=== PATIENT | female | born 1975 | race Hispanic/Latino ===

== ENCOUNTER 2020-01-08 09:47 | Outpatient (CLI) | payer OTHER, SELFPAY ==
--- NOTE | ~2020-01-08 | US_ITS ---
EXAMINATION: US pelvic complete w TV DATE: 01/08/2020 10:39 INDICATION: Pelvic pain. Endometriosis. Abnormal bleeding. TECHNIQUE: Multiple transabdominal and transvaginal sonographic images of the pelvis were obtained. COMPARISON: Pelvis ultrasound 06/01/2016, CT abdomen and pelvis 06/13/2016 FINDINGS: TRANSABDOMINAL ULTRASOUND: The uterus measures 7.2 x 4.1 x 4.6 cm. There is no free fluid in the pelvis. TRANSVAGINAL ULTRASOUND: The endometrial complex measures 6 mm in thickness. There is a 1.1 cm submucosal isoechoic fibroid. T he right ovary measures 2.8 x 1.5 x 2.5 cm. The left ovary measures 2.1 x 1.3 x 1.2 cm. There is norm al vascular flow in the ovaries. IMPRESSION: 1. Submucosal uterine fibroid. Reviewed, dictated and finalized at location A.
== END 2020-01-08 09:49 | disposition home or self-care (01) ==
PROVIDERS: PCP Family Medicine; Visit Provider Obstetrics & Gynecology
DX: D25.0 Submucous leiomyoma of uterus (principal); N80.9 Endometriosis, unspecified; R10.2 Pelvic and perineal pain
CPT/HCPCS: 76830; 76856

== ENCOUNTER 2020-08-23 17:56 | Outpatient (CLI) | payer OTHER, SELFPAY ==
--- NOTE | ~2020-08-23 | XR_ITS ---
EXAMINATION: XR chest 2V DATE: 08/23/2020 18:29 INDICATION: Shortness of breath. COVID-19 pneumonia in February. TECHNIQUE: Frontal and lateral views of the chest were obtained. COMPARISON: CT abdomen and pelvis 06/13/2016 FINDINGS: The chest demonstrates clear lungs without pneumonia, pleural effusion, or pneumothorax. Th e heart size is normal. IMPRESSION: 1. No acute cardiopulmonary disease. Reviewed, dictated and finalized at location A.
== END 2020-08-23 17:57 | disposition home or self-care (01) ==
PROVIDERS: PCP Family Medicine; Visit Provider Nurse Practitioner Family
DX: R50.9 Fever, unspecified (principal); U07.1 COVID-19
CPT/HCPCS: 71046

== ENCOUNTER → 2021-05-19 00:19 | Outpatient (CLI) | payer OTHER, SELFPAY ==
[2021-05-19 13:07] LABS: SARS-CoV-2 RNA PCR Negative
== END ==
PROVIDERS: PCP Family Medicine; Visit Provider Psychiatry & Neurology Neurology
DX: Z01.812 Encounter for preprocedural laboratory examination (principal); Z20.822 Contact with and (suspected) exposure to COVID-19
CPT/HCPCS: C9803; U0003; U0005

== ENCOUNTER 2021-05-19 11:59 | Outpatient (CLI) | payer OTHER, SELFPAY ==
[2021-05-19 11:42] LABS: Basophils Percent Auto 0.6 % (0.2-1.2); Eosinophils Absolute Auto 0.1 K/mm3 (0-0.3); Eosinophils Percent Auto 1.8 % (0-4.4); Hematocrit 38.3 % (37.0-47.0); Hemoglobin 12.7 g/dL (12.0-15.0); Immature Granulocyte Absolute 0.01 K/mm3 (0.00-0.031); Immature Granulocyte Percent A 0.1 % (0-0.5); Lymphocytes Absolute Auto 1.86 K/mm3 (0.9-3.2); Lymphocytes Percent Auto 25.7 % (18.3-44.2); Mean Corpuscular HGB Conc 33.2 g/dl (32-36); Mean Corpuscular Hemoglobin 30.9 pg (26-34); Mean Corpuscular Volume 93.2 fl (80-100); Mean Platelet Volume 9.8 fl (7.4-10.4); Monocytes Absolute Auto 0.7 K/mm3 (0.1-0.6); Monocytes Percent Auto 9.1 % (2.6-8.5); Neutrophils Absolute Auto 4.5 K/mm3 (1.3-6.7); Neutrophils Percent Auto 62.7 % (45.5-73.1); Platelet Count Result 248 k/mm3 (150-375); Red Blood Count 4.11 M/mm3 (4.2-5.4); Red Cell Distribution Width 13.7 % (11.5-14.5); White Blood Count 7.2 K/mm3 (4.5-10.0)
[2021-05-19 13:40] LABS: Alanine Aminotransferase 12 U/L (4-35); Albumin Level 4.5 g/dL (3.5-5.1); Alkaline Phosphatase 81 U/L (38-126); Anion Gap 6 mmol/L (8-16); Aspartate Amino Transferase 20 U/L (14-36); Bilirubin,Total 0.3 mg/dL (0.2-1.3); Blood Urea Nitrogen 9 mg/dL (7-17); Calcium 9.6 mg/dL (8.4-10.2); Carbon Dioxide 26 mmol/L (22-30); Chloride 109 mmol/L (98-107); Estimated Glomerular Filt Rate > 60; Glucose 99 mg/dL (65-110); Potassium 3.7 mmol/L (3.4-5.0); Sodium 141 mmol/L (137-145)
[2021-05-31 15:53] LABS: Albumin, Serum 4.1 g/dL (3.5-5.2); Immunoglobulin G, Serum 1560 mg/dL (600-1640); Myelin Basic Protein, CSF <2.0 mcg/L (2.0-4.0)
== END 2021-05-19 12:00 | disposition home or self-care (01) ==
LOC: ANHLAB 11:59
PROVIDERS: PCP Family Medicine; Visit Provider Psychiatry & Neurology Neurology
DX: G35 Multiple sclerosis (principal); D89.89 Other specified disorders involving the immune mechanism, not elsewhere classified; Z86.69 Personal history of other diseases of the nervous system and sense organs
CPT/HCPCS: 36415; 80053; 82040; 82042; 82784; 83873; 83916; 85025; 86038; C9803; U0003; U0005

== ENCOUNTER 2021-05-23 07:25 | Outpatient (CLI) | payer OTHER, SELFPAY ==
--- NOTE | ~2021-05-23 | XR_ITS ---
EXAMINATION: XR lumbar puncture diagnostic DATE: 05/23/2021 10:10 INDICATION: Multiple sclerosis TECHNIQUE: The procedure including the risks and benefits was discussed with the patient. Risks discu ssed included spinal headache, cerebrospinal fluid leak, bleeding, and infection. The patient underst ood the risks and agreed to proceed. A timeout was performed to verify the patient's name, date of , and procedure to be performed. The skin overlying the L3-L4 level was prepped and draped in usual sterile fashion. Subcutaneous 1% lidocaine was used for local anesthesia. A 22 gauge spinal n eedle was advanced under fluoroscopic guidance. The needle was removed and the entry site was cleaned and dressed. There were no immediate complications. The patient was taken to the nursing area for o bservation. FINDINGS: Real-time fluoroscopy demonstrates the needle at the L3-L4 level. Opening pressure was 17 c m water. (Normal range is variably defined as 6-20 cm water and up to 25 cm water in obese patients. Pressure >25 cm water is one of the modified Dandy criteria for idiopathic intracranial hypertension) . 15 mL of clear, colorless fluid was collected in 4 tubes. IMPRESSION: 1. Successful fluoro-guided lumbar puncture. Reviewed, dictated and finalized at location A. ER PILOT
[2021-05-23 08:24] LABS: Basophils Absolute Auto 0.1 K/mm3 (0.0-0.1); Basophils Percent Auto 0.5 % (0.2-1.2); Eosinophils Absolute Auto 0.2 K/mm3 (0-0.3); Eosinophils Percent Auto 1.7 % (0-4.4); Hematocrit 39.4 % (37.0-47.0); Hemoglobin 12.8 g/dL (12.0-15.0); Immature Granulocyte Absolute 0.02 K/mm3 (0.00-0.031); Immature Granulocyte Percent A 0.2 % (0-0.5); Lymphocytes Absolute Auto 3.28 K/mm3 (0.9-3.2); Lymphocytes Percent Auto 35.7 % (18.3-44.2); Mean Corpuscular HGB Conc 32.5 g/dl (32-36); Mean Corpuscular Hemoglobin 30.5 pg (26-34); Mean Corpuscular Volume 93.8 fl (80-100); Mean Platelet Volume 9.9 fl (7.4-10.4); Monocytes Absolute Auto 0.9 K/mm3 (0.1-0.6); Monocytes Percent Auto 9.8 % (2.6-8.5); Neutrophils Absolute Auto 4.8 K/mm3 (1.3-6.7); Neutrophils Percent Auto 52.1 % (45.5-73.1); Platelet Count Result 243 k/mm3 (150-375); Red Cell Distribution Width 13.6 % (11.5-14.5); White Blood Count 9.2 K/mm3 (4.5-10.0)
[2021-05-23 08:35] LABS: Prothrombin Time 12.9 Seconds (11.1-14.7)
[2021-05-23 10:00] VITALS: BP 118/66; PULSE 62; RESP 16; O2SAT 98
[2021-05-23 10:16] LABS: Glucose CSF 53 mg/dL (40-70); Total Protein CSF 60 mg/dL (12-60)
[2021-05-23] MEDS: HYDROcodone/acetaminophen (*CRX) 10-325 MG TABLET 1 TAB PO (10:45)
[2021-05-23 11:00] VITALS: BP 131/77; PULSE 63; RESP 16
[2021-05-23 11:16] LABS: Appearance CSF Clear (Clear); CSF source CSF; Color CSF Colorless (Colorless)
--- NOTE | 2021-05-23 11:39 | SUR.PHASEII ---
pt given water, 7up and gram crackers and is tolerating that well
[2021-05-23 11:55] LABS: Red Blood Cell CSF 2.75 (0-2)
[2021-05-23 11:56] LABS: Nucleated Cell CSF 0 /uL (0-5)
[2021-05-23 12:00] VITALS: BP 112/53; PULSE 63; RESP 16
[2021-05-24 21:57] LABS: Cryptococcus Antigen Not Detected (Not Detected); Cryptococcus Specimen Source CSF
[2021-05-25 18:03] LABS: VDRL Quantitative CSF Nonreactive (Nonreactive)
== END 2021-05-23 12:20 | disposition home or self-care (01) ==
PROVIDERS: Radiology Diagnostic Radiology; PCP Family Medicine; Visit Provider Psychiatry & Neurology Neurology
PROC: 009U3ZZ Drainage of Spinal Canal, Percutaneous Approach (ICD-10-PCS; CPT 62328; principal; 2021-05-23 09:30)
DX: G35 Multiple sclerosis (principal)
CPT/HCPCS: 36415; 62328; 82945; 84157; 85025; 85610; 86403; 86592; 87070; 87102; 87206; 89051; A9270

== ENCOUNTER 2021-06-21 10:00 | Outpatient (CLI) | payer OTHER, SELFPAY ==
[2021-06-21 10:38] LABS: Basophils Percent Auto 0.4 % (0.2-1.2); Eosinophils Absolute Auto 0.3 K/mm3 (0-0.3); Eosinophils Percent Auto 3.5 % (0-4.4); Hematocrit 39.1 % (37.0-47.0); Hemoglobin 12.7 g/dL (12.0-15.0); Immature Granulocyte Absolute 0.02 K/mm3 (0.00-0.031); Immature Granulocyte Percent A 0.2 % (0-0.5); Lymphocytes Absolute Auto 1.83 K/mm3 (0.9-3.2); Lymphocytes Percent Auto 22.7 % (18.3-44.2); Mean Corpuscular HGB Conc 32.5 g/dl (32-36); Mean Corpuscular Hemoglobin 30.9 pg (26-34); Mean Corpuscular Volume 95.1 fl (80-100); Mean Platelet Volume 9.7 fl (7.4-10.4); Monocytes Absolute Auto 0.8 K/mm3 (0.1-0.6); Monocytes Percent Auto 9.9 % (2.6-8.5); Neutrophils Absolute Auto 5.1 K/mm3 (1.3-6.7); Neutrophils Percent Auto 63.3 % (45.5-73.1); Platelet Count Result 236 k/mm3 (150-375); Red Blood Count 4.11 M/mm3 (4.2-5.4); Red Cell Distribution Width 13.6 % (11.5-14.5); White Blood Count 8.1 K/mm3 (4.5-10.0)
[2021-06-21 10:55] LABS: Alanine Aminotransferase 10 U/L (4-35); Albumin Level 4.6 g/dL (3.5-5.1); Alkaline Phosphatase 91 U/L (38-126); Anion Gap 9 mmol/L (8-16); Aspartate Amino Transferase 22 U/L (14-36); Bilirubin,Total 0.6 mg/dL (0.2-1.3); Blood Urea Nitrogen 9 mg/dL (7-17); Calcium 9.3 mg/dL (8.4-10.2); Carbon Dioxide 25 mmol/L (22-30); Chloride 104 mmol/L (98-107); Cholesterol 153 mg/dL (0-200); Estimated Glomerular Filt Rate > 60; Glucose 91 mg/dL (65-110); HDL Direct 34 mg/dL; Potassium 3.4 mmol/L (3.4-5.0); Sodium 138 mmol/L (137-145); Triglycerides 125 mg/dL (<150); Uric Acid 4.2 mg/dL (2.5-7.5)
[2021-06-21 11:05] LABS: LDL Cholesterol Direct 85 mg/dL
[2021-06-21 11:12] LABS: Free T4 Free Thyroxine 0.92 ng/mL (0.78-2.19)
[2021-06-21 11:17] LABS: Creatinine Urine 77.5 mg/dL
[2021-06-21 11:22] LABS: MALB Creatinine Ratio 9.2 mg/g (0-30); Microalbumin Urine Random 7.1 mg/L (0-16.7)
[2021-06-21 11:24] LABS: Total Triiodothyronine (T3) 1.16 NG/ML (0.97-1.69)
[2021-06-21 11:57] LABS: Vitamin D 25 Hydroxy 26.6 ng/mL
== END 2021-06-21 10:01 | disposition home or self-care (01) ==
LOC: ANHLAB 10:02
PROVIDERS: PCP Family Medicine; Visit Provider Nurse Practitioner Adult Health
DX: N18.2 Chronic kidney disease, stage 2 (mild) (principal)
CPT/HCPCS: 36415; 80053; 80061; 82043; 82306; 84439; 84443; 84480; 84550; 85025

== ENCOUNTER 2021-09-14 09:12 | Outpatient (CLI) | payer OTHER, SELFPAY ==
--- NOTE | ~2021-09-14 | MR_ITS ---
EXAMINATION: MR cervical spine wo/w con DATE: 09/14/2021 11:18 INDICATION: Multiple sclerosis. TECHNIQUE: Magnetic resonance imaging (MRI) of the cervical spine was performed without and with 20 m L MultiHance intravenous contrast. COMPARISON: None FINDINGS: There is 7 degrees dextrocurvature of cervicothoracic spine. There is kyphosis of cervical spine. Vertebral body heights are normal. There is moderately decreased disc height at C3-C4 and C4-C 5 and severely decreased disc height at C5-C6. The spinal cord signal intensity is normal. The follow ing disc levels are specifically discussed: C2-C3: The disc does not extend beyond the endplate margin. There is mild bilateral uncovertebral brigido nt osteoarthritis. There is severe right and mild left facet joint osteoarthritis. There is mild righ t neural foraminal stenosis. There is no central canal stenosis. C3-C4: The disc is bulging. There is severe bilateral uncovertebral joint osteoarthritis. There is mo derate right and severe left facet joint osteoarthritis. There is moderate bilateral neural foraminal stenosis. There is mild central canal stenosis with ventral indentation of the spinal cord. C4-C5: The disc is bulging. There is severe bilateral uncovertebral joint osteoarthritis. There is mo derate right and mild left facet joint osteoarthritis. There is moderate right and severe left neural foraminal stenosis. There is moderate central canal stenosis with ventral and dorsal indentation of the spinal cord. C5-C6: The disc is bulging. There is severe bilateral uncovertebral joint osteoarthritis. There is mi ld bilateral facet joint osteoarthritis. There is severe bilateral neural foraminal stenosis. There i s moderate central canal stenosis with ventral and dorsal indentation of spinal cord. C6-C7: There is a central protrusion. There is mild bilateral uncovertebral joint osteoarthritis. The re is mild right and moderate left facet joint osteoarthritis. There is mild bilateral neural foramin al stenosis. There is mild central canal stenosis. C7-T1: The disc does not extend beyond the endplate margin. There is no uncovertebral joint osteoarth ritis. There is moderate bilateral facet joint osteoarthritis. There is no neural foraminal stenosis. There is no central canal stenosis. IMPRESSION: 1. No spinal cord evidence of multiple sclerosis. 2. Severe cervical spondylosis. Reviewed, dictated and finalized at location A.
--- NOTE | ~2021-09-14 | MR_ITS ---
EXAMINATION: MR thoracic spine wo/w con DATE: 09/14/2021 11:19 INDICATION: Multiple sclerosis. TECHNIQUE: Magnetic resonance imaging (MRI) of the thoracic spine was performed without and with 20 m L MultiHance intravenous contrast. COMPARISON: Chest 2 views 08/23/2020 FINDINGS: There is 11 degrees levoscoliosis of upper thoracic spine and 7 degrees dextrocurvature of lower thoracic spine. There is mild chronic height loss of T7, T8, and T12 vertebral bodies. There is mildly decreased disc height at T4-T5 and T5-T6, moderately decreased disc height from T6-T7 through T8-T9, and mildly decreased disc height from T9-T10 through T11-T12. At T6-T7, there is a central ex trusion with mild central canal stenosis. At T7-T8, there is a left central extrusion with mild centr al canal stenosis. There is multilevel mild facet joint osteoarthritis, severe on the right at T4-T5 and T5-T6. On the right, there is moderate neural foraminal stenosis at T4-T5. On the right, there is mild neural foraminal stenosis at T3-T4, T5-T6, and T11-T12. On the left, there is mild neural florentin inal stenosis at T3-T4 and T4-T5. The spinal cord signal intensity is normal. The conus medullaris is at L1-L2. IMPRESSION: 1. No evidence of spinal cord multiple sclerosis. 2. Moderate thoracic spondylosis. 3. Scoliosis. Reviewed, dictated and finalized at location A.
--- NOTE | ~2021-09-14 | MR_ITS ---
EXAMINATION: MR brain/brain stem wo/w con DATE: 09/14/2021 11:16 INDICATION: Multiple sclerosis. TECHNIQUE: Magnetic resonance imaging (MRI) of the brain and brainstem was performed without and with 20 mL MultiHance intravenous contrast. COMPARISON: None. FINDINGS: There are more than 10 total lesions of increased T2-weighted signal intensity in the brain . Of these lesions, approximately one is periventricular, three are juxtacortical, and none are infra tentorial. None of the lesions enhance. There is no acute ischemic infarct or intracranial hemorrhage . The ventricles are normal in size. The orbits are normal. There is complete opacification of right maxillary sinus. The mastoid air cells are normal. IMPRESSION: 1. Mild nonspecific cerebral white matter disease. The differential diagnosis includes premature lead mechanical engineer vale small vessel ischemic disease (especially if the patient has cardiovascular risk factors), demyel inating disease such as multiple sclerosis, drug abuse, vasculitis, or reactive astrocytosis (gliosis ) secondary to nonspecific etiology. Reviewed, dictated and finalized at location A. IMPRESSION: 1. Mild nonspecific cerebral white matter disease. The differential diagnosis i ncludes premature chronic small vessel ischemic disease (especially if the javier ent has cardiovascular risk factors), demyelinating disease such as multiple sc lerosis, drug abuse, vasculitis, or reactive astrocytosis (gliosis) secondary t o nonspecific etiology.
[2021-09-14 09:58] LABS: Estimated Glomerular Filt Rate 54
== END 2021-09-14 09:13 | disposition home or self-care (01) ==
LOC: ANHIMG 09:17
PROVIDERS: PCP Family Medicine; Visit Provider Psychiatry & Neurology Neurology
DX: G35 Multiple sclerosis (principal); M41.9 Scoliosis, unspecified; M47.814 Spondylosis without myelopathy or radiculopathy, thoracic region; M48.04 Spinal stenosis, thoracic region; M47.813 Spondylosis without myelopathy or radiculopathy, cervicothoracic region; M48.03 Spinal stenosis, cervicothoracic region; R90.82 White matter disease, unspecified
CPT/HCPCS: 70553; 72156; 72157; A9577

== ENCOUNTER 2024-03-13 12:45 | Outpatient (CLI) | payer OTHER, SELFPAY ==
[2024-03-13 13:17] LABS: Basophils Percent Auto 0.6 % (0.2-1.2); Eosinophils Absolute Auto 0.2 K/mm3 (0-0.3); Eosinophils Percent Auto 2.9 % (0-4.4); Hematocrit 35.1 % (37.0-47.0); Hemoglobin 11.5 g/dL (12.0-15.0); Immature Granulocyte Absolute 0.01 K/mm3 (0.00-0.031); Immature Granulocyte Percent A 0.1 % (0-0.5); Lymphocytes Absolute Auto 2.35 K/mm3 (0.9-3.2); Mean Corpuscular HGB Conc 32.8 g/dl (32-36); Mean Corpuscular Volume 91.6 fl (80-100); Mean Platelet Volume 9.1 fl (7.4-10.4); Monocytes Percent Auto 14.4 % (2.6-8.5); Neutrophils Absolute Auto 3.5 K/mm3 (1.3-6.7); Platelet Count Result 285 k/mm3 (150-375); Red Blood Count 3.83 M/mm3 (4.2-5.4); Red Cell Distribution Width 12.5 % (11.5-14.5); White Blood Count 7.1 K/mm3 (4.5-10.0)
[2024-03-13 13:37] LABS: Alanine Aminotransferase 9 U/L (6-35); Albumin Level 4.7 g/dL (3.5-5.1); Alkaline Phosphatase 45 U/L (38-126); Anion Gap 10 mmol/L (4-12); Aspartate Amino Transferase 25 U/L (14-36); Bilirubin,Total 0.6 mg/dL (0.2-1.3); Blood Urea Nitrogen 20 mg/dL (7-17); Calcium 9.3 mg/dL (8.4-10.2); Carbon Dioxide 26 mmol/L (22-30); Chloride 102 mmol/L (98-107); Estimated Glomerular Filt Rate 48; Glucose 76 mg/dL (65-110); Potassium 2.7 mmol/L (3.4-5.0); Sodium 138 mmol/L (137-145)
[2024-03-13 13:58] LABS: Total Triiodothyronine (T3) 0.93 NG/ML (0.97-1.69)
[2024-03-13 14:06] LABS: Free T4 Free Thyroxine 1.11 ng/mL (0.78-2.19)
[2024-03-13 14:34] LABS: Folic Acid 6.4 ng/mL (2.76->20)
== END 2024-03-13 12:46 | disposition home or self-care (01) ==
LOC: ANHLAB 12:56
PROVIDERS: PCP Family Medicine; Visit Provider Psychiatry & Neurology Neurology
DX: D64.9 Anemia, unspecified (principal); R53.83 Other fatigue; R41.3 Other amnesia; R41.89 Other symptoms and signs involving cognitive functions and awareness; R90.89 Other abnormal findings on diagnostic imaging of central nervous system; G35 Multiple sclerosis; R20.0 Anesthesia of skin
CPT/HCPCS: 36415; 80053; 82607; 82746; 84425; 84439; 84443; 84480; 85025

== ENCOUNTER 2024-03-15 12:04 | Emergency (ER) | payer OTHER, SELFPAY ==
[2024-03-15 12:13] VITALS: BP 134/74; PULSE 96; RESP 16; TEMP 36.2; O2SAT 100
--- NOTE | 2024-03-15 12:53 | ED.RECABL ---
HPI - Recheck/Abnormal Lab/Rx General Chief Complaint: Recheck/Abnormal Lab/Rx Stated Complaint: low sodium Time Seen by Provider: 03/15/24 12:53 Focused HPI: Patient is a 48 y/o female, with PMH MS, who presents to the ED with c/o abnormal labs. Patient reports she had routine labs drawn over the weekend for her doctors. Was told today her potassium was low at 2.7. Sent here for further evaluation. Patient denies previous issues with her potassium. States she has otherwise felt in her normal state of health. Has hx of IBS and denies any increased N/V/D. Denies fevers. GENERAL: Well-appearing, well-nourished, and in no acute distress. HEAD: Normocephalic, atraumatic. CHEST: Clear to auscultation. ?No respiratory distress. HEART: Regular rate and rhythm.? NEURO: ?Alert and oriented x3. Patient screened in triage and initial orders placed.? ?Additional care and disposition to be based upon?diagnostic testing and treatment. Source: patient Mode of arrival: ambulatory Limitations: no limitations Related Data Home Medications Medication Instructions Recorded Confirmed baclofen 20 mg tablet 20 mg PO BID 05/14/21 06/25/21 cholecalciferol (vitamin D3) 1,250 1,250 mcg PO WEEKLY 05/14/21 06/25/21 mcg (50,000 unit) capsule diphenoxylate-atropine 2.5 1 tablet PO QID PRN 05/14/21 06/25/21 mg-0.025 mg tablet (Lomotil) ferrous sulfate 325 mg (65 mg 325 mg PO BID 05/14/21 06/25/21 iron) tablet hydrochlorothiazide 25 mg tablet 25 mg PO DAILY 05/14/21 06/25/21 hydrocodone 10 mg-acetaminophen 1 tablet PO Q4H PRN 05/14/21 06/25/21 325 mg tablet ondansetron HCl 4 mg tablet 4 mg PO Q6H PRN 05/14/21 06/25/21 potassium chloride 20 mEq 20 meq PO BID 05/14/21 06/25/21 tablet,extended release pregabalin 100 mg capsule (Lyrica) 100 mg PO BID 05/14/21 06/25/21 sumatriptan succinate 50 mg tablet See Rx Instructions PO .COMPLEX 05/14/21 06/25/21 topiramate 50 mg tablet 50 mg PO BID 05/14/21 06/25/21 Allergies Allergy/AdvReac Type Severity Reaction Status Date / Time morphine Allergy Unknown RESP Verified 09/03/23 11:14 DEPRESSANT Penicillins Allergy Unknown Skin Verified 09/03/23 11:14 Reaction Sulfa (Sulfonamide Allergy Unknown HIVES/SOB Verified 09/03/23 11:14 Antibiotics) latex Allergy Unknown Verified 09/03/23 11:14 [facility] Past Medical History Medical History Ankle swelling Endometriosis History of low potassium Multiple sclerosis Social History Social History (Updated 09/03/23 @ 11:17 by YAMILA Carpenter) Social History: former smoker Smoking status: Former smoker Alcohol intake: former Substance use: never Substance use type: does not use Do You Feel Safe in your Home?: Yes Lack of Transportation: No Lack of Food: Never True Current Housing: I Have Housing Concerned About Future Housing: No Difficulty Paying Gas/Electric Bills: No Difficulty Paying for Meds: No Currently Unemployed: YES Education: Associate Degree Difficulty w/ Childcare or Family Care: No Course Vital Signs Vital signs: Vital Signs Temperature 97.2 F L 03/15/24 12:13 Pulse Rate 96 03/15/24 12:13 Respiratory Rate 16 03/15/24 12:13 Blood Pressure 134/74 03/15/24 12:13 Pulse Oximetry 100 03/15/24 12:13 Temperature 97.4 F L 03/15/24 15:53 Pulse Rate 79 03/15/24 15:53 Respiratory Rate 16 03/15/24 15:53 Blood Pressure 127/79 03/15/24 15:53 Pulse Oximetry 99 03/15/24 15:53 MDM - Recheck/Abnormal Lab/Rx MDM Narrative Medical decision making narrative: MSE by MARIANELA in triage. Lab Data 03/15/24 13:01 03/15/24 13:01 Labs: Lab Results 03/15/24 Range/Units 13:01 WBC 8.0 (4.5-10.0) K/mm3 RBC 3.80 L (4.2-5.4) M/mm3 Hgb 11.3 L (12.0-15.0) g/dL Hct 37.0 (37.0-47.0) % MCV 97.4 D (80-100) fl MCH 29.7 (26-34) pg MCHC 30.5 L (32-36) g/dl RDW 12.3 (11.5-14.5) % Plt Count 268 (150-375) k/mm3 MPV 9.6 (7.4-10.4) fl Immature Gran % (Auto) 0.2 (0-0.5) % Neut % (Auto) 55.8 (45.5-73.1) % Lymph % (Auto) 25.7 (18.3-44.2) % [place] % (Auto) 12.0 H (2.6-8.5) % Eos % (Auto) 5.4 H (0-4.4) % Baso % (Auto) 0.9 (0.2-1.2) % Lymph # (Auto) 2.06 (0.9-3.2) K/mm3 [place] # (Auto) 1.0 H (0.1-0.6) K/mm3 Eos # (Auto) 0.4 H (0-0.3) K/mm3 Baso # (Auto) 0.1 (0.0-0.1) K/mm3 Abs Immat Gran (auto) 0.02 (0.00-0.031) K/mm3 Absolute Neuts (auto) 4.5 (1.3-6.7) K/mm3 Absolute Nucleated RBC 0.000 (0.0-0.012) K/mm3 Nucleated RBC % 0.0 (0.0-0.2) % Sodium 138 (137-145) mmol/L Potassium 3.1 L (3.4-5.0) mmol/L Chloride 103 (98-107) mmol/L Carbon Dioxide 26 (22-30) mmol/L Anion Gap 9 (4-12) mmol/L BUN 15 D (7-17) mg/dL Creatinine 1.00 (0.7-1.0) mg/dL Estim Creat Clear Calc 60 ml/min Estimated GFR 60 (59 - ) Glucose 95 (65-110) mg/dL Calcium 9.1 (8.4-10.2) mg/dL Magnesium 2.4 H (1.6-2.3) mg/dL Discharge Plan Discharge Clinical Impression: Hypokalemia Patient Disposition: Home, Self-Care Condition: Stable Instructions: Antibiotic Form, Hypokalemia (ED) Prescriptions: No Action baclofen 20 mg tablet 20 mg PO BID hydrochlorothiazide 25 mg tablet 25 mg PO DAILY topiramate 50 mg tablet 50 mg PO BID sumatriptan succinate 50 mg tablet See Rx Instructions PO .COMPLEX Rx Instructions: take 1 tab at onset of headache; if no relief may repeat 1 tab after at least 2 hrs; max = 4 tabs/24 hr PO ferrous sulfate 325 mg (65 mg iron) tablet 325 mg PO BID potassium chloride 20 mEq tablet extended release 20 meq PO BID cholecalciferol (vitamin D3) 1,250 mcg (50,000 unit) capsule 1,250 mcg PO WEEKLY ondansetron HCl 4 mg tablet 4 mg PO Q6H PRN pregabalin [Lyrica] 100 mg capsule 100 mg PO BID diphenoxylate-atropine [Lomotil] 2.5-0.025 mg tablet 1 tablet PO QID PRN hydrocodone-acetaminophen 10-325 mg tablet 1 tablet PO Q4H PRN Follow-up/Referrals: Edwardo Fajardo MD [Primary Care Provider] -
[2024-03-15 13:38] LABS: Basophils Absolute Auto 0.1 K/mm3 (0.0-0.1); Basophils Percent Auto 0.9 % (0.2-1.2); Eosinophils Absolute Auto 0.4 K/mm3 (0-0.3); Eosinophils Percent Auto 5.4 % (0-4.4); Hemoglobin 11.3 g/dL (12.0-15.0); Immature Granulocyte Absolute 0.02 K/mm3 (0.00-0.031); Immature Granulocyte Percent A 0.2 % (0-0.5); Lymphocytes Absolute Auto 2.06 K/mm3 (0.9-3.2); Lymphocytes Percent Auto 25.7 % (18.3-44.2); Mean Corpuscular HGB Conc 30.5 g/dl (32-36); Mean Corpuscular Hemoglobin 29.7 pg (26-34); Mean Corpuscular Volume 97.4 fl (80-100); Mean Platelet Volume 9.6 fl (7.4-10.4); Neutrophils Absolute Auto 4.5 K/mm3 (1.3-6.7); Neutrophils Percent Auto 55.8 % (45.5-73.1); Platelet Count Result 268 k/mm3 (150-375); Red Cell Distribution Width 12.3 % (11.5-14.5)
[2024-03-15 13:45] LABS: Anion Gap 9 mmol/L (4-12); Blood Urea Nitrogen 15 mg/dL (7-17); Calcium 9.1 mg/dL (8.4-10.2); Carbon Dioxide 26 mmol/L (22-30); Chloride 103 mmol/L (98-107); Estimated CRCL calculation 60 ml/min; Estimated Glomerular Filt Rate 60; Glucose 95 mg/dL (65-110); Magnesium 2.4 mg/dL (1.6-2.3); Potassium 3.1 mmol/L (3.4-5.0); Sodium 138 mmol/L (137-145)
[2024-03-15] MEDS: POTASSIUM CHLORIDE 20 MEQ ER TABLET 40 MEQ PO (15:30)
--- NOTE | 2024-03-15 15:40 | ED_ITS ---
HPI - Recheck/Abnormal Lab/Rx General Chief Complaint: Recheck/Abnormal Lab/Rx Stated Complaint: low sodium Time Seen by Provider: 03/15/24 12:53 Source: patient Mode of arrival: ambulatory Limitations: no limitations History of Present Illness HPI narrative: Pt here for low potassium on outpatient labs. Pt not having symptoms. Pt started on HCZ recently. Related Data Home Medications Medication Instructions Recorded Confirmed baclofen 20 mg tablet 20 mg PO BID 05/14/21 06/25/21 cholecalciferol (vitamin D3) 1,250 1,250 mcg PO WEEKLY 05/14/21 06/25/21 mcg (50,000 unit) capsule diphenoxylate-atropine 2.5 1 tablet PO QID PRN 05/14/21 06/25/21 mg-0.025 mg tablet (Lomotil) ferrous sulfate 325 mg (65 mg 325 mg PO BID 05/14/21 06/25/21 iron) tablet hydrochlorothiazide 25 mg tablet 25 mg PO DAILY 05/14/21 06/25/21 hydrocodone 10 mg-acetaminophen 1 tablet PO Q4H PRN 05/14/21 06/25/21 325 mg tablet ondansetron HCl 4 mg tablet 4 mg PO Q6H PRN 05/14/21 06/25/21 potassium chloride 20 mEq 20 meq PO BID 05/14/21 06/25/21 tablet,extended release pregabalin 100 mg capsule (Lyrica) 100 mg PO BID 05/14/21 06/25/21 sumatriptan succinate 50 mg tablet See Rx Instructions PO .COMPLEX 05/14/21 06/25/21 topiramate 50 mg tablet 50 mg PO BID 05/14/21 06/25/21 Allergies Allergy/AdvReac Type Severity Reaction Status Date / Time morphine Allergy Unknown RESP Verified 09/03/23 11:14 DEPRESSANT Penicillins Allergy Unknown Skin Verified 09/03/23 11:14 Reaction Sulfa (Sulfonamide Allergy Unknown HIVES/SOB Verified 09/03/23 11:14 Antibiotics) latex Allergy Unknown Verified 09/03/23 11:14 Review of Systems Review of Systems: All systems reviewed & are unremarkable except as noted in HPI and below PMFSH Past Medical History Medical History (Reviewed 09/03/23 @ 11:16 by Paul Villa COUNTS INCLUDE 234 BEDS AT THE [facility]) Ankle swelling Endometriosis History of low potassium Multiple sclerosis Social History Social History (Updated 09/03/23 @ 11:17 by Paul Villa, COUNTS INCLUDE 234 BEDS AT THE [facility]) Social History: former smoker Smoking status: Former smoker Alcohol intake: former Substance use: never Substance use type: does not use Do You Feel Safe in your Home?: Yes Lack of Transportation: No Lack of Food: Never True Current Housing: I Have Housing Concerned About Future Housing: No Difficulty Paying Gas/Electric Bills: No Difficulty Paying for Meds: No Currently Unemployed: YES Education: Associate Degree Difficulty w/ Childcare or Family Care: No Exam Const: General: healthy appearing and no acute distress Nutritional Appearance: well nourished Orientation/consciousness: patient oriented x3 Limitations: no limitations Eyes: EOM: EOMs intact bilaterally Resp: Effort & Inspection: normal respiratory effort Cardio: Rate: regular rate Rhythm: regular rhythm Skin: General skin exam: normal color Wounds: no wounds Neuro: General: patient oriented x3, moves all extremities and no focal motor deficits Speech: normal speech Extrem: General: normal to inspection Psych: Mental Status: mental status grossly normal Affect: normal affect Attitude: cooperative Course Vital Signs Vital signs: Vital Signs Temperature 97.2 F L 03/15/24 12:13 Pulse Rate 96 03/15/24 12:13 Respiratory Rate 16 03/15/24 12:13 Blood Pressure 134/74 03/15/24 12:13 Pulse Oximetry 100 03/15/24 12:13 Temperature 97.4 F L 03/15/24 15:53 Pulse Rate 79 03/15/24 15:53 Respiratory Rate 16 03/15/24 15:53 Blood Pressure 127/79 03/15/24 15:53 Pulse Oximetry 99 03/15/24 15:53 MDM - Recheck/Abnormal Lab/Rx MDM Narrative Medical decision making narrative: Pt had low k on outpatient labs. k 3.1 here. Will give 40 kcl and d/c. Have repeat labs in a couple of days. Lab Data 03/15/24 13:01 03/15/24 13:01 Labs: Lab Results 03/15/24 Range/Units 13:01 WBC 8.0 (4.5-10.0) K/mm3 RBC 3.80 L (4.2-5.4) M/mm3 Hgb 11.3 L (12.0-15.0) g/dL Hct 37.0 (37.0-47.0) % MCV 97.4 D (80-100) fl MCH 29.7 (26-34) pg MCHC 30.5 L (32-36) g/dl RDW 12.3 (11.5-14.5) % Plt Count 268 (150-375) k/mm3 MPV 9.6 (7.4-10.4) fl Immature Gran % (Auto) 0.2 (0-0.5) % Neut % (Auto) 55.8 (45.5-73.1) % Lymph % (Auto) 25.7 (18.3-44.2) % [place] % (Auto) 12.0 H (2.6-8.5) % Eos % (Auto) 5.4 H (0-4.4) % Baso % (Auto) 0.9 (0.2-1.2) % Lymph # (Auto) 2.06 (0.9-3.2) K/mm3 [place] # (Auto) 1.0 H (0.1-0.6) K/mm3 Eos # (Auto) 0.4 H (0-0.3) K/mm3 Baso # (Auto) 0.1 (0.0-0.1) K/mm3 Abs Immat Gran (auto) 0.02 (0.00-0.031) K/mm3 Absolute Neuts (auto) 4.5 (1.3-6.7) K/mm3 Absolute Nucleated RBC 0.000 (0.0-0.012) K/mm3 Nucleated RBC % 0.0 (0.0-0.2) % Sodium 138 (137-145) mmol/L Potassium 3.1 L (3.4-5.0) mmol/L Chloride 103 (98-107) mmol/L Carbon Dioxide 26 (22-30) mmol/L Anion Gap 9 (4-12) mmol/L BUN 15 D (7-17) mg/dL Creatinine 1.00 (0.7-1.0) mg/dL Estim Creat Clear Calc 60 ml/min Estimated GFR 60 (59 - ) Glucose 95 (65-110) mg/dL Calcium 9.1 (8.4-10.2) mg/dL Magnesium 2.4 H (1.6-2.3) mg/dL Discharge Plan Discharge Clinical Impression: Hypokalemia Patient Disposition: Home, Self-Care Condition: Stable Instructions: Antibiotic Form, Hypokalemia (ED) Prescriptions: No Action baclofen 20 mg tablet 20 mg PO BID hydrochlorothiazide 25 mg tablet 25 mg PO DAILY topiramate 50 mg tablet 50 mg PO BID sumatriptan succinate 50 mg tablet See Rx Instructions PO .COMPLEX Rx Instructions: take 1 tab at onset of headache; if no relief may repeat 1 tab after at least 2 hrs; max = 4 tabs/24 hr PO ferrous sulfate 325 mg (65 mg iron) tablet 325 mg PO BID potassium chloride 20 mEq tablet extended release 20 meq PO BID cholecalciferol (vitamin D3) 1,250 mcg (50,000 unit) capsule 1,250 mcg PO WEEKLY ondansetron HCl 4 mg tablet 4 mg PO Q6H PRN pregabalin [Lyrica] 100 mg capsule 100 mg PO BID diphenoxylate-atropine [Lomotil] 2.5-0.025 mg tablet 1 tablet PO QID PRN hydrocodone-acetaminophen 10-325 mg tablet 1 tablet PO Q4H PRN Follow-up/Referrals: Edwardo Fajardo MD [Primary Care Provider] -
[2024-03-15 15:53] VITALS: BP 127/79; PULSE 79; RESP 16; TEMP 36.3; O2SAT 99
== END 2024-03-15 15:55 | disposition home or self-care (01) ==
PROVIDERS: Physician Assistant; Emergency Provider Emergency Medicine; PCP Family Medicine
DX: E87.6 Hypokalemia (principal); G35 Multiple sclerosis
CPT/HCPCS: 36415; 80048; 83735; 85025; 99283; A9270

== ENCOUNTER 2024-04-22 15:42 | Outpatient (CLI) | payer OTHER, SELFPAY ==
[2024-04-22 16:19] LABS: Anion Gap 7 mmol/L (4-12); Blood Urea Nitrogen 13 mg/dL (7-17); Calcium 9.4 mg/dL (8.4-10.2); Carbon Dioxide 24 mmol/L (22-30); Chloride 107 mmol/L (98-107); Estimated Glomerular Filt Rate 48; Glucose 86 mg/dL (65-110); Potassium 3.6 mmol/L (3.4-5.0); Sodium 138 mmol/L (137-145)
== END 2024-04-22 15:43 | disposition home or self-care (01) ==
LOC: ANHLAB 15:43
PROVIDERS: PCP Family Medicine; Visit Provider Registered Nurse
DX: I10 Essential (primary) hypertension (principal)
CPT/HCPCS: 36415; 80048

== ENCOUNTER 2024-06-22 16:03 | Outpatient (CLI) | payer OTHER, SELFPAY ==
[2024-06-22 16:32] LABS: Basophils Percent Auto 0.8 % (0.2-1.2); Eosinophils Absolute Auto 0.2 K/mm3 (0-0.3); Eosinophils Percent Auto 4.6 % (0-4.4); Hematocrit 29.6 % (37.0-47.0); Hemoglobin 9.2 g/dL (12.0-15.0); Immature Granulocyte Absolute 0.01 K/mm3 (0.00-0.031); Immature Granulocyte Percent A 0.2 % (0-0.5); Lymphocytes Absolute Auto 1.98 K/mm3 (0.9-3.2); Lymphocytes Percent Auto 37.6 % (18.3-44.2); Mean Corpuscular HGB Conc 31.1 g/dl (32-36); Mean Corpuscular Hemoglobin 27.8 pg (26-34); Mean Corpuscular Volume 89.4 fl (80-100); Mean Platelet Volume 9.7 fl (7.4-10.4); Monocytes Absolute Auto 0.8 K/mm3 (0.1-0.6); Monocytes Percent Auto 15.2 % (2.6-8.5); Neutrophils Absolute Auto 2.2 K/mm3 (1.3-6.7); Neutrophils Percent Auto 41.6 % (45.5-73.1); Platelet Count Result 269 k/mm3 (150-375); Red Blood Count 3.31 M/mm3 (4.2-5.4); Red Cell Distribution Width 13.8 % (11.5-14.5); White Blood Count 5.3 K/mm3 (4.5-10.0)
== END 2024-06-22 16:04 | disposition home or self-care (01) ==
LOC: ANHLAB 16:04
PROVIDERS: PCP Family Medicine; Visit Provider Obstetrics & Gynecology
DX: N92.1 Excessive and frequent menstruation with irregular cycle (principal)
CPT/HCPCS: 36415; 85025

== ENCOUNTER 2024-07-23 15:57 | Outpatient (CLI) | payer OTHER, SELFPAY ==
--- OUTSIDE RECORDS SUMMARY | 2024-07-23 16:02 | XMS_ITS | Clinical Summary ---
Author Organization [facility] Address [address] [place] [address] Care Team Providers Care Patrol Sergeant Sheriff'S Office Name Role Phone Edwardo Fajardo MD Primary Care Provider Source Comments [facility],non-owned Affiliates and Associated Physician Practices is amultiple site organization consisting of ambulatory clinics and hospital sitesin [place], [place], [place] and [place]. This disclosure is being madepursuant to the Care Everywhere program and may not contain all information available regarding this patient. Last updated 18.[facility] Allergies Active Allergy Reactions Criticality Noted Date Comments Latex Urticaria,Shortness of Breath High 2016 Morphine Urticaria,Shortness of Breath High 2016 Penicillins Urticaria,Shortness of Breath High 01/10 Sulfa Drugs Urticaria,Shortness of Breath High 01/10 Medications * Be aware that medications may not be up to date on this document. Alwaysverify current medications with the patient. Medication Sig Dispensed Refills Start Date End Date Status baclofen (LIORESAL) 20 MG tablet 20 mg at bedtime 01/02/2017 Active diphenoxylate-atro pine (LOMOTIL) 2.5-0.025 MG tablet 03/28/2017 Active norethindrone-ethi nyl estradiol (MICROGESTIN) 1-20 MG-MCG tablet 01/04/2017 Active ondansetron (ZOFRAN) 4 MG tablet 03/27/2017 Active traMADol (ULTRAM) 50 MG tablet Take 100 mg by mouth 4 times daily 05/20/2017 Active BIOTIN PO Active Lactobacillus Acidophilus Active Multiple Vitamins-Minerals (WOMENS MULTI PO) Active SUMAtriptan (IMITREX) 25 MG tablet 07/23/2017 Active LYRICA 150 MG capsule Take 150 mg by mouth 2 times daily 10/24/2017 Active acetaminophen (TYLENOL) 500 MG tablet Take 2 tablets by mouth every 6 hours Maximum allowable Acetaminophen amount = 4 Grams (4000 mg) / 24 hours. 0 11/18/2017 Active meloxicam (MOBIC) 15 MG tablet Take 1 tablet by mouth once daily 30 tablet 2 11/18/2017 Active Active Problems Problem Noted Date Diagnosed Date Malaise and fatigue 09/17/2017 Myalgia 09/17/2017 Family History Medical History Relation Name Comments Lupus Maternal Grandfather Sleep Disorder - Narcolepsy Maternal Grandfather Thyroid Disease Mother Relation Name Status Comments Maternal Grandfather Mother Social History Tobacco Use Types Packs/Day Years Used Date Smoking Tobacco: Former Cigarettes 0.1 15 Smokeless Tobacco: Never Comments:Quit over a year ag o Alcohol Use Standard Drinks/Week Comments No 0 (1 standard drink = 0.6 oz pur e alcohol) Sex and Gender Information Value Date Recorded Sex Assigned at Not on file Gender Identity Not on file Sexual Orientation Not on file Last Filed Vital Signs Vital Sign Reading Time Taken Comments Blood Pressure 156/86 11/18/2017 3:27 PM CDT Pulse 76 11/18/2017 3:27 PM CDT Temperature 36.6 C (97.9 F) 11/18/2017 3:27 PM CDT Respiratory Rate - - Oxygen Saturation 98% 05/23/2017 1:19 PM [employer]IEF [employer]RARIAN [employer]ATION [employer]PARTMENT Inhaled Oxygen Concentration - - Weight 90.7 kg (200 lb) 11/18/2017 3:27 PM CDT Height 170.2 cm (5' 7 ) 11/18/2017 3:27 PM CDT Body Mass Index 31.32 11/18/2017 3:27 PM CDT Plan of Treatment Health Maintenance Due Date Last Done Comments ILIANA (AGES 45-75) - COL ON CA SCREENING 1977 COLON MONITORING 1977 COLONOSCOPY - COLON CA SCREENING 1977 CT COLONOGRAPHY - COLON CA SCREENING 1977 Colorectal Cancer Screening 1977 FIT - COLON CA SCREENING 1977 FLEX SIG - COLON CA SCREENING 1977 LIPID TESTING 1977 MAMMOGRAM 1977 PAP SMEAR 1977 HIV SCREENING 1992 HEPATITIS C SCREENING 09/12/1995 DTAP/TDAP/TD VACCINES (1 - Tdap) 1996 HEPATITIS B VACCINE (1 of 3 - 19+ 3-dose series) 1996 SCREENING FOR DIABETES 10/11/2020 10/11/2017 COVID-19 VACCINE (1 - 2023-2 5 season) 2023 DEPRESSION SCREENING 04/21/2024 INFLUENZA VACCINE (Season Ended) 2024 ZOSTER VACCINE (1 of 2) 09/17/2027 HIB VACCINE Aged Out No longer eligi ble based on patient's age to complete this topic HPV VACCINE Aged Out No longer eligi ble based on patient's age to complete this topic MENINGOCOCCAL (Group B) VACC INE SHARED DECISION-MAKING Aged Out No longer eligibl e based on patient's age to complete this topic MENINGOCOCCAL GROUPS A/C/Y/W VACCINE Aged Out No longer eligible b ased on patient's age to complete this topic PNEUMOCOCCAL VACCINE Aged Out No long er eligible based on patient's age to complete this topic Procedures Procedure Name Priority Date/Time Associated Diagnosis Comments COMPREHENSIVE METABOLIC PANEL Routine 10/11/2017 11:34 AM CDT Malaise and fatigue Myalgia from Last 3 Months or Most Recently Relevant to Health Maintenance Results * COMPREHENSIVE METABOLIC PANEL (10/11/2017 11:34 AM CDT) Pathologist [facility] Glucose 77 65 - 139 mg/dL [facility] Comment: Non-fasting reference interval BUN 13 7 - 25 mg/dL [facility] Creatinine 1.05 0.50 - 1.10 mg/dL [facility] eGFR by MDRD 66 > OR = 60 mL/min/1. 73m2 [facility] eGFR by MDRD 77 > OR = 60 mL/min/1. 73m2 [facility] BUN/Creatinine Ratio NOT APPLICABLE 6 - 22 (calc) [facility] Sodium 139 135 - 146 mmol/L [facility] Potassium 3.8 3.5 - 5.3 mmol/L [facility] Chloride 106 98 - 110 mmol/L [facility] CO2 23 20 - 31 mmol/L [facility] Calcium 8.7 8.6 - 10.2 mg/dL [facility] Protein Total 6.8 6.1 - 8.1 g/dL [facility] Albumin 3.9 3.6 - 5.1 g/dL [facility] Globulin Total 2.9 1.9 - 3.7 g/dL (calc) [facility] Albumin/Globuli n Ratio 1.3 1.0 - 2.5 (calc) [facility] Bilirubin Total 0.2 0.2 - 1.2 mg/dL [facility] Alkaline Phosphatase 50 33 - 115 U/L [facility] AST 15 10 - 30 U/L [facility] ALT 12 6 - 29 U/L [facility] Comment: Test Performed at: [facility] [id number] [place] [address] ERICK MARK DO,MPH Blood BLOOD SPECIMEN / Unknown 10/11/2017 11:34 AM CDT 10/11/2017 11:35 AM CDT Laron Cardenas MD LAB - CHEMISTRY [facility] [address] [place] [address] from Last 3 Months or Most Recently Relevant to Health Maintenance Care Teams Patrol Sergeant Sheriff'S Office Relationship Specialty Start Date End Date Edwardo Fajardo MD [address] [place] [address] PCP - General Family Medicine 07/31/17
--- OUTSIDE RECORDS SUMMARY | 2024-07-23 16:02 | XMS_ITS | Referral Summary ---
Author Organization [facility] Address [address] [place] [address] Care Team Providers Care Operator Helper Name Role Phone Edwardo Fajardo MD Primary Care Provider [phone] Allergies Active Allergy Reactions Criticality Noted Date Comments Latex Unknown 01/10/2017 Morphine Unknown 01/10/2017 Penicillins Unknown 01/10/2017 Sulfa (Sulfonamide Antibiotics) Unknown 12/21 Medications gabapentin (NEURONTIN) 300 mg capsule 600 mg 3 (three) times a day. 01/02/2017 Active baclofen (LIORESAL) 20 mg tablet 20 mg daily. 01/02/2017 Active traMADol (ULTRAM) 50 mg tablet 50 mg every 6 (six) hours as needed. 12/18/2016 Active biotin 5 mg capsule Take by mouth 2 (two) times a day. Active EVENING PRIMROSE OIL (EVENING PRIMROSE ORAL) Take 1,000 mg by mouth 2 (two) times a day. Active methylsulfonylme jack (MSM) 1,000 mg capsule Take 1,000 mg by mouth daily. Active LACTOBACILLUS ACIDOPHILUS (PROBIOTIC ORAL) Take by mouth daily. Active MV-MN/IRON FUM/FA/OMEGA3,6, 9#3 (WOMEN'S MULTI ORAL) Take by mouth daily. Active ibuprofen (ADVIL,MOTRIN) 800 mg tablet Take 800 mg by mouth every 6 (six) hours as needed for pain. Active ASPIRIN/ACETAMIN OPHEN/CAFFEINE (EXCEDRIN EXTRA STRENGTH ORAL) Take by mouth every 6 (six) hours. Active naproxen sodium 220 mg capsule Take 220 mg by mouth every 12 (twelve) hours. Active Social History Tobacco Use Types Packs/Day Years Used Date Smoking Tobacco: Never Smokeless Tobacco: Never Alcohol Use Standard Drinks/Week Comments No 0 (1 standard drink = 0.6 oz pur e alcohol) Personal Safety Answer Date Recorded Getting School Help Needed Not on file 07/04 Comments Unknown Sex and Gender Information Value Date Recorded Sex Assigned at Not on file Legal Sex Female 6:24 AM HYDROCHLORIC AREA SUPERVISOR Gender Identity Not on file Sexual Orientation Not on file Last Filed Vital Signs Vital Sign Reading Time Taken Comments Blood Pressure 132/84 04/02/2017 2:49 PM HYDROCHLORIC AREA SUPERVISOR Pulse 63 04/02/2017 2:49 PM HYDROCHLORIC AREA SUPERVISOR Temperature - - Respiratory Rate 16 01/10/2017 12:5 6 PM CDT Oxygen Saturation 95% 04/02/2017 2:49 PM HYDROCHLORIC AREA SUPERVISOR Inhaled Oxygen Concentration - - Weight 86.2 kg (189 lb 15.9 oz) 04/02/2017 2:49 PM HYDROCHLORIC AREA SUPERVISOR Height 170.2 cm (5' 7 ) 04/02/2017 2:49 PM HYDROCHLORIC AREA SUPERVISOR Body Mass Index 29.76 04/02/2017 2:49 PM HYDROCHLORIC AREA SUPERVISOR Plan of Treatment Not on file Insurance [facility] Care Teams Operator Helper Relationship Specialty Start Date End Date Edwardo Fajardo MD PCP - General 04/02/17
--- OUTSIDE RECORDS SUMMARY | 2024-07-23 16:02 | XMS_ITS | Continuity of Care Document ---
Author Organization [facility] Address [address] [place] [address] Phone Care Team Providers Care Consulting Hr Professional Name Role Phone Trent Torres MD Unavailable Unavailable Allergies, Adverse Reactions, Alerts Substance Reaction Status Criticality latex Active No Information morphine Active No Information Sulfa (Sulfonamide Antibiotics) Active No Information PENICILLIN Active No Information Medications Medication Instructions Dosage Effective Dates (start - stop) Status Comments ibuprofen 600 mg tablet take 1 tablet by oral route every 6 hours with food as needed 600 MG - Active PRN for pain, avoid driving or oeprate machines Percocet 7.5 mg-325 mg tablet take 1 tablet by oral route every 6 hours as needed 1.00 tablet - Active PRN for pain, avoid driving or operate machines buspirone 7.5 mg tablet take 1 tablet by oral route 2 times every day 7.5 MG - Active avoid driving or opeare amchines Procedures Procedure Date OFFICE/OUTPATIENT VISIT, EST OFFICE/OUTPATIENT VISIT, EST OFFICE/OUTPATIENT VISIT, EST OFFICE/OUTPATIENT VISIT, EST OFFICE/OUTPATIENT VISIT, EST PREV VISIT, NEW, AGE 18-39 OFFICE/OUTPATIENT VISIT, NEW Advance Directives Directive Yes / No Effective Date File Name No Information Encounters Encounter Description Practice Location Reason(s) For Visit Diagnoses Date Provider Providers Copied on Encounter [facility], [address] [place], [place], [id number], [place] tel:[phone] [facility] No Information Jul-0 9-201 7 Brian Newman. [address], [place], [place], [address] , [place]. tel:[phone] OFFICE/OUTPA TIENT VISIT, [facility], [address], [place], [place], [address], [place] tel:[phone] [facility] pelvic pain (chief complaint) pelvic pain1 (chief complaint) anxiety1 (chief complaint) Abdominal painLumbago with sciatica, left sideGeneralized Anxiety Disorder Apr-0 5-201 7 Brian Newman. [address], [place], [place], [address] , [place]. tel:[phone] Referring Provider: Cristy Burrows [address], [place], [place], [id number]. tel:[phone] OFFICE/OUTPA TIENT VISIT, [facility], [address], [place], [place], [address], [place] tel:[phone] [facility] chronic pain1 (chief complaint) alcohol1 (chief complaint) Abdominal pain Jun-1 3-201 7 Brian Newman. [address], [place], [place], [address] , [place]. tel:[phone] Referring Provider: Trent Torres [address], [place], [place], [id number]. tel:[phone] OFFICE/OUTPA TIENT VISIT, [facility], [address], [place], [place], [address], [place] tel:[phone] [facility] pelvic pain1 (chief complaint) Pelvic painOther cholelithiasis w/o obstruction Jun-0 2-201 7 Brian Newman. [address], [place], [place], [address] , [place]. tel:[phone] Referring Provider: Cristy Burrows [address], [place], [place], [id number]. tel:[phone] OFFICE/OUTPA TIENT VISIT, [facility], [address], [place], [place], [address], [place] tel:[phone] [facility] Medicine abd pain1 (chief complaint) Abdominal pain 7 Brian Newman. [address], [place], [place], [address] , [place]. tel:[phone] Referring Provider: Cristy Burrows [address] [facility] [address], [place], [place], [address]. tel:[phone] OFFICE/OUTPA TIENT VISIT, [facility], [address] [place] [place], [id number], [place] [phone] [facility] pelvic pain1 (chief complaint) anemia1 (chief complaint) low D (chief complaint) Pelvic painAnemiaVitamin D deficiency, unspecifiedEssentia l (primary) hypertension 7 Brian Newman. [address], [place], [place], [address] , [place]. tel:[phone] Referring Provider: Cristy Burrows [address], [place], [place], [id number]. tel:[phone] PREV VISIT, NEW, AGE 18-39 [facility], [address] [place], [address], [place] tel:[phone] [facility] PHysical (chief complaint) Encounter for general adult medical exam w abnormal findingsPelvic painFatigueIrregula r period 7 Brian Newman. [address], [address] , [place]. tel:[phone] Referring Provider: Cristy Burrows [address] [facility] [address], [place], [place], [address]. tel:[phone] Family History Family Member Type Diagnosis Age At Onset Father Problem (finding) Hypertension Mother Problem (finding) Diabetes mellitus type 2 Mother Problem (finding) Hypertension Brother Problem (finding) Alive and well Payers Payer name Insurance type Covered libertarian ID Authoriza tion(s) No Information Social History Type Description Quantity Date Captured Comments Sex Female Smoking Status No Information Chief Complaint And Reason For Visit No Information Plan Of Treatment Date Type Action Status Referral Ordered: Physical Therapy (related to Sciatica, left side) ordered Referral Referred To: Physical Therapy Ordered: Referrals: Physical Therapy. Evaluate and treat ordered Referral Ordered: LUMBAR XRAY AP AND LAT ONLY ordered Referral Ordered: Pain Medicine (related to Abdominal pain) ordered Referral Ordered: Gastroenterology (related to Abdominal pain) ordered Referral Ordered: Referrals: Pain Medicine. Evaluate and treat ordered Referral Ordered: NUC MED HIDA (HEPATOBILIARY) SCAN ordered Referral Ordered: Referrals: Gastroenterology. Evaluate and treat ordered Referral Ordered: CT ABDOMEN&PELVIS W/CONTRAST ordered Referral Ordered: US, PELVIC (NONOBSTETRIC); ordered History Of Present Illness Encounter Date Complaint History Of Prese nt Illness anxiety1 Pt states that s he has been having anxiety disorder. Pt denies any depression or any suicidal thought. Pt feels anxious due to her pain ,Pt denies any cyring spells. Pt wants anxiety meds. pelvic pain1 Pt c/o peristent left flank and left side and left pelvic pain. Pt had negative CT scan and HIDA scan. Pt states that she has sharp pain constantly. Pt was evaluted by BILINGUAL SALES ASSISTANT and she was told that she may have endometrosis and work up is ongoing. Pt also told me she has been have low back pain with left sciatica down to left hip for the past week ,Pt denies any injury Pt denies any loss of bowel or bladder control. Pt denies any numbness. Pt told me percocet is not helping and she wants something stronger for pain. Pt told me to refer her to back specialist pelvic pain alcohol1 Pt told me she s he did not drink any alcohol and she certainly will not mix alcohol with meds. chronic pain1 Pt has chronic p elvic pain. Pt has left side pelvic pain. Pt just seen BILINGUAL SALES ASSISTANT and was started on hormone. Pt states that has daily severe pain around 9/10 and nobody cares about it. Pt denies any nauea, vomiting, diarrhea. Pt was told to follow up with glove printer in 4 weeks. pelvic pain1 Pt has chornic l eft side pelvic pain. Pt states that her pain is 9/10 and dull in nature. Pt has gallstone but she denies any right upper quadrant pain or any relatinoship with food. Pt states that she went to BILINGUAL SALES ASSISTANT appointment but she could not see the physician due to emergency C/S. Pt was rescheduled again for the 07/03/16. Pt states that hydrocodone does not work either and she wants percocet or oxycodone? pt is tearful today in office. abd pain1 Pt has chronic l eft side low abdominal pain. Pt states that she has constant sharp pain with pressure feeling left lower quadrant and left flank area. Pt states that she has been bethany norco PRN for pain but is around every 4 hours to help her with pain control. Pt has 6/10 and sometimes 10/10. Pt denies any nausea, vomiting, bloody stool or diarrhea. Pt finally got her CT approved. Pt has appointment with BILINGUAL SALES ASSISTANT next week Pt states that she needs more pain meds low D Pt has low D. anemia1 Pt has mild anem ia. Pt has low ferritin. Pt denies any vaginal bleeding. Pt denies any GI blood loss pelvic pain1 Pt has chronic s evere pelvic pain on left side. Pt states that norco 7.5 does not help. Pt had pelvic ultrasound done which showed ? polyp. pt states that she feels pressure around pelvic area. Pt has appointment with BILINGUAL SALES ASSISTANT in two weeks Pt denies any nausea, vomiting, diarrhea. Pt states that her pelvic pain is getting worse during last week. Pt states that she has 9/10 pain. Pt denies any vaginal discharge or bleeding. Pt denies any bloody stool\ PHysical Pt needs anual p hysical Pt has history of endometriosis. pt c/o intermittent breakthrough vaginal bleeding between period for at least 6 months. Pt has some random bleeding between her regular period, which is every 4 weeks or so. Pt also c/o very painful pressure feeling around her pelvic area and radiating around left flank and to her back as well. Pt states that the pelvic pain also started about 6 months ago. Pt denies any other complaints Pt has mild nausea but no abd pain. Pt denies any GERd. pt feels fatigue also. Instructions Date Instruction Additional Infor mation Prescribed Diet Educ ation/Lifestyle Education Regarding Diet Related to Dietary Surveillance and Counseling Prescribed Activity and Exercise Education Related to Dietary Surveillance and Counseling Prescribed Diet Educ ation/Lifestyle Education Regarding Diet Related to Dietary Surveillance and Counseling Prescribed Activity and Exercise Education Related to Dietary Surveillance and Counseling Prescribed Activity and Exercise Education Related to Dietary Surveillance and Counseling Prescribed Diet Educ ation/Lifestyle Education Regarding Diet Related to Dietary Surveillance and Counseling Prescribed Diet Educ ation/Lifestyle Education Regarding Diet Related to Dietary Surveillance and Counseling Prescribed Activity and Exercise Education Related to Dietary Surveillance and Counseling Assessments Type Assessment Date No Information
--- OUTSIDE RECORDS SUMMARY | 2024-07-23 16:02 | XMS_ITS | Clinical Summary ---
Author Organization [facility] Address [address] [place] [address] Care Team Providers Care Pet Resort Concierge Name Role Phone Edwardo Fajardo MD Primary Care Provider [phone] Allergies Active Allergy Reactions Criticality Noted Date [...] by mouth every 12 (twelve) hours. Active Surgical History Surgery Date Site/Laterality Comments LAPAROSCOPY Medical History Medical History Date Comments Endometriosis Social History Tobacco Use Types Packs/Day Years [...] on file Legal Sex Female 6:24 AM BLASTING CONTRACT MAN Gender Identity Not on file Sexual Orientation Not on file Obstetrics History Last Filed Vital Signs Vital Sign Reading Time Taken Comments Blood Pressure 132/84 04/02/2017 2:49 PM BLASTING CONTRACT MAN Pulse 63 04/02/2017 2:49 PM BLASTING CONTRACT MAN Temperature - - Respiratory Rate 16 01/10/2017 12:5 6 PM CDT Oxygen Saturation 95% 04/02/2017 2:49 PM BLASTING CONTRACT MAN Inhaled Oxygen Concentration - - Weight 86.2 kg (189 lb 15.9 oz) 04/02/2017 2:49 PM BLASTING CONTRACT MAN Height 170.2 cm (5' 7 ) 04/02/2017 2:49 PM BLASTING CONTRACT MAN Body Mass Index 29.76 04/02/2017 2:49 PM BLASTING CONTRACT MAN Plan of Treatment Not on file Insurance [facility] Care Teams Pet Resort Concierge Relationship Specialty Start Date End Date Edwardo Fajardo MD PCP - General 04/02/17
[2024-07-23 16:14] LABS: Hematocrit 32.3 % (37.0-47.0); Mean Corpuscular Volume 87.3 fl (80-100); Mean Platelet Volume 9.6 fl (7.4-10.4); Platelet Count Result 273 k/mm3 (150-375); Red Cell Distribution Width 14.6 % (11.5-14.5); White Blood Count 8.3 K/mm3 (4.5-10.0)
[2024-07-23 16:26] LABS: Anion Gap 13 mmol/L (4-12); Blood Urea Nitrogen 11 mg/dL (7-17); Calcium 9.4 mg/dL (8.4-10.2); Carbon Dioxide 22 mmol/L (22-30); Chloride 105 mmol/L (98-107); Estimated Glomerular Filt Rate 49; Glucose 99 mg/dL (65-110); Sodium 140 mmol/L (137-145)
== END 2024-07-23 15:58 | disposition home or self-care (01) ==
LOC: ANHLAB 16:00
PROVIDERS: PCP Family Medicine; Referring Provider Anesthesiology; Visit Provider Obstetrics & Gynecology
DX: Z79.899 Other long term (current) drug therapy (principal); N92.1 Excessive and frequent menstruation with irregular cycle
CPT/HCPCS: 36415; 80048; 85027

== ENCOUNTER 2024-07-29 01:40 | Day surgery (SDC) | payer OTHER, SELFPAY ==
[2024-07-20 13:41] VITALS: BMI 24.5
--- NOTE | 2024-07-20 14:37 | PC.NURSE ---
Report to the Outpatient Waiting Room, entrance under the green pavilion located off [facility], at time ___30___ on date _07/29/24__. Planned Procedure Time: ___1030 .? Time changes happen often and if your time is changed the preop area will call you the afternoon before. - You and your visitor will be asked to self-screen and do not enter if you have any COVID symptoms. Please call surgeon if you need to reschedule. - A mask is optional within the hospital at this time. Patients may have clear liquids (water, carbonated beverages, clear teas, apple juice) until 3 hours prior to surgery with a maximum of 20 ounces. - No food from midnight until time of surgery and no smoking, or chewing tobacco (or any form of nicotine). No chewing gum, candy or mints. Take only the following medications with a SIP of water on the morning of surgery: __TAKE MEDS FOR MIGRAINE THE DAY OF PROCEDURE IF NEEDED DO NOT STOP ANY OF YOUR OTHER PRESCRIPTION MEDICATIONS PRIOR TO SURGERY EXCEPT THE FOLLOWING Hold all vitamins and supplements for 3 days per anesthesiologist. Medications to discontinue per physician N/A Date to take last dose___N/A Please no make-up, nail malian, hairspray, perfume, deodorant, or body powder the day of surgery.? No jewelry (including any body piercings) or valuables the day of surgery, leave them at home.? Please take a shower or bath the night before, or the morning of, surgery with an antibacterial soap.? Wear comfortable, loose fitting clothing.? - Jewelry must be removed prior to entering the operating room.? Rings and piercings that are not removed may be cut off. - The hospital will not accept responsibility for valuables.? - Please leave all valuables, including medications, at home the day of surgery. If you are going home after surgery, a licensed telephone directory distributor driver must drive you home.? - NO public transportation without another adult if you receive anesthesia. - We recommend that an adult stay with you for 24 hours following discharge. - We also recommend that you do not drive, make important decision, drink alcoholic beverages, or take any drugs that were not prescribed by your health care provider for at least 24 hours after your discharge time. Follow any additional instructions given to you from your surgeon. Telephone instructions given to __LEAH and asked if any additional questions and then verbalized understanding. Patient advised to call surgeon office or pre surgery nurse liaison [phone] if any additional questions.
--- NOTE | 2024-07-27 17:31 | PM.IMHP ---
H&P: HPI History of Present Illness Date/Time: 07/27/24 17:31 48-year-old female presents for evaluation irregular bleeding pain and anemia. Has had longstanding history of heavy bleeding cramping and clots, has been diagnosed with endometriosis in the past. Has been on Lupron in the past which did help but this was a temporary measure. Recent ultrasound revealed 3cm fibroid endometrial thickness and irregular regularity of 14mm. Also blood count of 10/30. Ultimately likely will need hysterectomy, endometrium needs to be assessed prior to definitive care. Chief Complaint: Menometrorrhagia Review of Systems Review of Systems: All systems reviewed & are unremarkable except as noted in HPI and below PMFSH Past Medical History Medical History (Updated 07/27/24 @ 17:34 by Hammad Goodwin MD) Screening mammogram, encounter for Multiple sclerosis History of low potassium Ankle swelling Endometriosis Surgical History Surgical History History of gynecological procedure surgery for endometriosis age 22 Family History Family History Mother Breast cancer Diabetes mellitus type 2 Grandparent Acute myocardial infarction maternal Hypertension maternal Diabetes mellitus CHF (congestive heart failure) maternal grandfather Father Hypertension Social History Social History Social History: former smoker Smoking packs per day: 0.25 Smoking cigarettes per day: 5.0 Years smoked: 20 Smoking pack-years: 5.00 Smoking status: Former smoker Tobacco type: cigarettes Second hand tobacco smoke exposure: No Smoking end date: 04/21/16 Alcohol intake: never Substance use: never Substance use type: does not use Do You Feel Safe in your Home?: Yes Lack of Transportation: No Lack of Food: Never True Current Housing: I Have Housing Concerned About Future Housing: No Difficulty Paying Gas/Electric Bills: No Difficulty Paying for Meds: No Currently Unemployed: No Education: Associate Degree Difficulty w/ Childcare or Family Care: No Living arrangements: with family Additional living arrangements comments: / with a longterm partner of 20 years Occupation/Education: unemployed 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 (if verbalized by the patient): Female Sexual Orientation (if Verbalized by the Patient): Straight or Heterosexual Spiritual care concerns: No Meds Home Medications and Allergies Home Medications ?Medication ?Instructions ?Recorded ?Confirmed ?Type baclofen 20 mg tablet 20 mg PO BID 05/14/21 07/20/24 History cholecalciferol (vitamin D3) 1,250 1,250 mcg PO WEEKLY 05/14/21 07/20/24 History mcg (50,000 unit) capsule diphenoxylate-atropine 2.5 1 tablet PO QID PRN diarrhea 05/14/21 07/20/24 History mg-0.025 mg tablet (Lomotil) ferrous sulfate 325 mg (65 mg 325 mg PO BID 05/14/21 07/20/24 History iron) tablet hydrochlorothiazide 25 mg tablet 25 mg PO DAILY 05/14/21 07/20/24 History hydrocodone 10 mg-acetaminophen 1 tablet PO Q4H PRN pain 05/14/21 07/20/24 History 325 mg tablet ondansetron HCl 4 mg tablet 4 mg PO Q6H PRN nausea and vomiting 05/14/21 07/20/24 History potassium chloride 20 mEq 20 meq PO BID 05/14/21 07/20/24 History tablet,extended release pregabalin 100 mg capsule (Lyrica) 150 mg PO BID 05/14/21 07/20/24 History sumatriptan succinate 50 mg tablet See Rx Instructions PO .COMPLEX 05/14/21 07/20/24 History topiramate 50 mg tablet 50 mg PO BID 05/14/21 07/20/24 History alprazolam 1 mg tablet 1 mg PO DAILY 06/01/24 07/20/24 History trazodone 100 mg tablet 100 mg PO HS PRN insomnia 07/20/24 07/20/24 History Allergies Allergy/AdvReac Type Severity Reaction Status Date / Time latex Allergy Severe Difficulty Verified 07/20/24 14:57 Breathing meperidine (From Demerol) Allergy Unknown Difficulty Verified 07/20/24 14:57 Breathing morphine Allergy Unknown Dyspnea / Verified 07/20/24 14:57 SOB Penicillins Allergy Unknown Swelling Verified 07/20/24 14:57 Sulfa (Sulfonamide Allergy Unknown HIVES/SOB Verified 07/20/24 14:57 Antibiotics) Exam Const: General: cooperative, healthy appearing and comfortable Resp: Effort & Inspection: normal respiratory effort Auscultation: clear to auscultation bilaterally Cardio: Rate: regular rate Rhythm: regular rhythm GI: Inspection: normal to inspection Auscultation: normal bowel sounds : External Female Exam: normal external appearance Speculum Exam - Vagina: normal appearance of the vagina Speculum Exam - Cervix: normal appearance of the cervix Bimanual exam- vagina & uterus: enlarged ( 10-12 week size) and Uterine tenderness Bimanual Exam- Adnexa, other: normal adnexae Assessment and Plan Assessment and plan (1) Menometrorrhagia: Code(s): N92.1 - Excessive and frequent menstruation with irregular cycle Status: Acute (2) Dysmenorrhea: Code(s): N94.6 - Dysmenorrhea, unspecified Status: Acute (3) Endometriosis: Code(s): N80.9 - Endometriosis, unspecified Status: Acute (4) Anemia: Code(s): D64.9 - Anemia, unspecified Status: Acute Plan 1. Hysteroscopy with uterine curettings
--- OUTSIDE RECORDS SUMMARY | 2024-07-29 01:43 | XMS_ITS | Referral Summary ---
Author Organization [facility] Address [address] [place] [address] Care Team Providers Care Curb Attendant Name Role Phone Edwardo Fajardo MD Primary Care Provider [phone] Allergies Active Allergy Reactions Criticality Noted Date [...] on file Legal Sex Female 6:24 AM HOME CARE CONSULTANT Gender Identity Not on file Sexual Orientation Not on file Last Filed Vital Signs Vital Sign Reading Time Taken Comments Blood Pressure 132/84 04/02/2017 2:49 PM HOME CARE CONSULTANT Pulse 63 04/02/2017 2:49 PM HOME CARE CONSULTANT Temperature - - Respiratory Rate 16 01/10/2017 12:5 6 PM CDT Oxygen Saturation 95% 04/02/2017 2:49 PM HOME CARE CONSULTANT Inhaled Oxygen Concentration - - Weight 86.2 kg (189 lb 15.9 oz) 04/02/2017 2:49 PM HOME CARE CONSULTANT Height 170.2 cm (5' 7 ) 04/02/2017 2:49 PM HOME CARE CONSULTANT Body Mass Index 29.76 04/02/2017 2:49 PM HOME CARE CONSULTANT Plan of Treatment Not on file Insurance [facility] Care Teams Curb Attendant Relationship Specialty Start Date End Date Edwardo Fajardo MD PCP - General 04/02/17
--- OUTSIDE RECORDS SUMMARY | 2024-07-29 01:43 | XMS_ITS | Continuity of Care Document ---
Author Organization [facility] Address [address] [place] [address] Phone Care Team Providers Care Mounting Inspector Name Role Phone Trent Torres MD Unavailable Unavailable Allergies, Adverse Reactions, Alerts Substance Reaction Status Criticality latex Active No Information morphine Active No Information Sulfa (Sulfonamide Antibiotics) Active No Information PENICILLIN Active No Information Medications Medication Instructions Dosage Effective Dates (start - stop) Status Comments buspirone 7.5 mg tablet take 1 tablet by oral route 2 times every day 7.5 MG - Active avoid driving or opeare amchines Percocet 7.5 mg-325 mg tablet take 1 tablet by oral route every 6 hours as needed 1.00 tablet - Active PRN for pain, avoid driving or operate machines ibuprofen 600 mg tablet take 1 tablet by oral route every 6 hours with food as needed 600 MG - Active PRN for pain, avoid driving or oeprate machines Procedures Procedure Date OFFICE/OUTPATIENT VISIT, EST OFFICE/OUTPATIENT VISIT, EST OFFICE/OUTPATIENT VISIT, EST OFFICE/OUTPATIENT VISIT, EST OFFICE/OUTPATIENT VISIT, EST PREV VISIT, NEW, AGE 18-39 OFFICE/OUTPATIENT VISIT, NEW Advance Directives Directive Yes / No Effective Date File Name No Information Encounters Encounter Description Practice Location Reason(s) For Visit Diagnoses Date Provider Providers Copied on Encounter [facility], [address] [place], [place], [id number], [place] tel:[phone] [facility] No Information Jul-0 9-201 7 Brian Newman. [address], [place], [place], [address] , [place]. tel:[phone] OFFICE/OUTPA TIENT VISIT, [facility], [place], [address], [place], [place], [address], [place] tel:[phone] [facility] pelvic pain (chief complaint) pelvic pain1 (chief complaint) anxiety1 (chief complaint) Abdominal painLumbago with sciatica, left sideGeneralized Anxiety Disorder Apr-0 5-201 7 Brian Newman. [address], [place], [place], [address] , [place]. tel:[phone] Referring Provider: Cristy Burrows [address], [place], [place], [address]. tel:[phone] OFFICE/OUTPA TIENT VISIT, [facility], [place], [address], [place], [place], [address], [place] tel:[phone] [facility] chronic pain1 (chief complaint) alcohol1 (chief complaint) Abdominal pain Jun-1 3-201 7 Brian Newman. [address], [place], [place], [address] , [place]. tel:[phone] Referring Provider: Trent Torres [address], [place], [place], [address]. tel:[phone] OFFICE/OUTPA TIENT VISIT, [facility], [place], [address], [place], [place], [address], [place] tel:[phone] [facility] pelvic pain1 (chief complaint) Pelvic painOther cholelithiasis w/o obstruction Jun-0 2-201 7 Brian Newman. [address], [place], [place], [address] , [place]. tel:[phone] Referring Provider: Cristy Burrows [address], [place], [place], [address]. tel:[phone] OFFICE/OUTPA TIENT VISIT, [facility], [place], [address], [place], [place], [address], [place] tel:[phone] [facility] Medicine abd pain1 (chief complaint) Abdominal pain 7 Brian Newman. [address], [place], [place], [address] , [place]. tel:[phone] Referring Provider: Cristy Burrows [address] [facility] [address], [place], [place], [address]. tel:[phone] OFFICE/OUTPA TIENT VISIT, [facility], [place], [address] [place], [address], [place] [phone] [facility] pelvic pain1 (chief complaint) anemia1 (chief complaint) low D (chief complaint) Pelvic painAnemiaVitamin D deficiency, unspecifiedEssentia l (primary) hypertension 7 Brian Newman. [address], [place], [place], [address] , [place]. tel:[phone] Referring Provider: Cristy Burrows [address], [place], [place], [address]. tel:[phone] PREV VISIT, NEW, AGE 18-39 [facility], [address] [place], [place], [address], [place] tel:[phone] [facility] PHysical (chief complaint) Encounter for general adult medical exam w abnormal findingsPelvic painFatigueIrregula r period 7 Brian Newman. [address] [place], [place], [address] , [place]. tel:[phone] Referring Provider: Cristy Burrows [address] [facility] A, [place], [place], [address]. tel:[phone] Family History Family Member Type Diagnosis Age At Onset Father Problem (finding) Hypertension Mother Problem (finding) Diabetes mellitus type 2 Mother Problem (finding) Hypertension Brother Problem (finding) Alive and well Payers Payer name Insurance type Covered constitution party ID Authoriza tion(s) No Information Social History [...] (related to Abdominal pain) ordered Referral Ordered: NUC MED HIDA (HEPATOBILIARY) SCAN ordered Referral Ordered: Referrals: Gastroenterology. Evaluate and treat ordered Referral Ordered: Referrals: Pain Medicine. Evaluate and treat ordered Referral Ordered: CT ABDOMEN&PELVIS W/CONTRAST ordered Referral Ordered: US, PELVIC (NONOBSTETRIC); ordered History Of Present Illness Encounter Date Complaint History Of Prese nt Illness pelvic pain pelvic pain1 Pt c/o peristent left flank and left side and left pelvic pain. Pt had negative CT scan and HIDA scan. Pt states that she has sharp pain constantly. Pt was evaluted by CLIENT SERVICE ASSOCIATE and she was told that she may [...] me to refer her to back specialist anxiety1 Pt states that s he has been having anxiety disorder. Pt denies any depression or any suicidal thought. Pt feels anxious due to her pain ,Pt denies any cyring spells. Pt wants anxiety meds. chronic pain1 Pt has chronic p elvic pain. Pt has left side pelvic pain. Pt just seen CLIENT SERVICE ASSOCIATE and was started on hormone. Pt states that has daily severe pain around 9/10 and nobody cares about it. Pt denies any nauea, vomiting, diarrhea. Pt was told to follow up with retail banker in 4 weeks. alcohol1 Pt told me she s he did not drink any alcohol and she certainly will not mix alcohol with meds. pelvic pain1 Pt has chornic l eft side pelvic pain. Pt states that her pain is 9/10 and dull in nature. Pt has gallstone but she denies any right upper quadrant pain or any relatinoship with food. Pt states that she went to CLIENT SERVICE ASSOCIATE appointment but she could not see the [...] her CT approved. Pt has appointment with CLIENT SERVICE ASSOCIATE next week Pt states that she needs more pain meds pelvic pain1 Pt has chronic s evere pelvic pain on left side. Pt states that norco 7.5 does not help. Pt had pelvic ultrasound done which showed ? polyp. pt states that she feels pressure around pelvic area. Pt has appointment with CLIENT SERVICE ASSOCIATE in two weeks Pt denies any nausea, vomiting, diarrhea. Pt states that her pelvic pain is getting worse during last week. Pt states that she has 9/10 pain. Pt denies any vaginal discharge or bleeding. Pt denies any bloody stool\ anemia1 Pt has mild anem ia. Pt has low ferritin. Pt denies any vaginal bleeding. Pt denies any GI blood loss low D Pt has low D. PHysical Pt needs anual p hysical Pt [...] Instructions Date Instruction Additional Infor mation Prescribed Activity and Exercise Education Related to [...]
--- OUTSIDE RECORDS SUMMARY | 2024-07-29 01:43 | XMS_ITS | Clinical Summary ---
Author Organization [facility] Address [address] [place] [address] Care Team Providers Care Recordings Librarian Name Role Phone Edwardo Fajardo MD Primary Care Provider [phone] Source Comments [facility],non-owned Affiliates and Associated Physician Practices is amultiple site organization consisting of ambulatory clinics and hospital sitesin [place], [place], [place] and [place]. This disclosure is being madepursuant to the Care Everywhere program and may not contain all information available regarding this patient. Last updated 18.[facility] Allergies Active Allergy Reactions Criticality Noted Date [...] - Oxygen Saturation 98% 05/23/2017 1:19 PM PROFESSOR OF THEATRE Inhaled Oxygen Concentration - - Weight 90.7 [...] 29 U/L [facility] Comment: Test Performed at: [facility] [address] [place] [address] ERICK MARK DO,MPH Blood BLOOD SPECIMEN / Unknown 10/11/2017 11:34 AM CDT 10/11/2017 11:35 AM CDT Laron Cardenas MD LAB - CHEMISTRY [facility] [address] [place] [address] from Last 3 Months or Most Recently Relevant to Health Maintenance Care Teams Recordings Librarian Relationship Specialty Start Date End Date Edwardo Fajardo MD [address] [place] [address] PCP - General Family Medicine 07/31/17
--- OUTSIDE RECORDS SUMMARY | 2024-07-29 01:43 | XMS_ITS | Clinical Summary ---
Author Organization [facility] Address [address] [place] [address] Care Team Providers Care Pump Operator Byproducts Name Role Phone Edwardo Fajardo MD Primary Care Provider [phone] Allergies Active Allergy Reactions Criticality Noted Date [...] on file Legal Sex Female 6:24 AM FUR SCRAPER Gender Identity Not on file Sexual Orientation Not on file Obstetrics History Last Filed Vital Signs Vital Sign Reading Time Taken Comments Blood Pressure 132/84 04/02/2017 2:49 PM FUR SCRAPER Pulse 63 04/02/2017 2:49 PM FUR SCRAPER Temperature - - Respiratory Rate 16 01/10/2017 12:5 6 PM CDT Oxygen Saturation 95% 04/02/2017 2:49 PM FUR SCRAPER Inhaled Oxygen Concentration - - Weight 86.2 kg (189 lb 15.9 oz) 04/02/2017 2:49 PM FUR SCRAPER Height 170.2 cm (5' 7 ) 04/02/2017 2:49 PM FUR SCRAPER Body Mass Index 29.76 04/02/2017 2:49 PM FUR SCRAPER Plan of Treatment Not on file Insurance [facility] Care Teams Pump Operator Byproducts Relationship Specialty Start Date End Date Edwardo Fajardo MD PCP - General 04/02/17
--- NOTE | 2024-07-29 06:09 | WPDHPUPDATE1 ---
History and Physical Update Update Date/Time: 07/29/24 06:09 History and Physical has been reviewed, including an updated exam of the patient. There are NO changes in the patient's condition. Risks, benefits, and alternatives have been discussed and questions answered. Patient agrees to proceed with procedure.
--- NOTE | 2024-07-29 09:44 | P.PNAN_ITS ---
Anes - Initial Pre Proc Eval Procedure: Operation Date: 07/29/24 10:30 Proposed Procedures p Hysteroscopy, Dilation and Curettage - Hammad Goodwin MD Date/Time: 07/29/24 09:44 Surgeon: Hammad Goodwin MD Pre Op Diagnosis: menometrorrhagia Patient Data Age: 48 Gender: F Height: 1.7 m Weight: 70.9 kg Allergies Allergy/AdvReac Type Severity Reaction Status Date / Time latex Allergy Severe Difficulty Verified 07/20/24 14:57 Breathing meperidine (From Demerol) Allergy Unknown Difficulty Verified 07/20/24 14:57 Breathing morphine Allergy Unknown Dyspnea / Verified 07/20/24 14:57 SOB Penicillins Allergy Unknown Swelling Verified 07/20/24 14:57 Sulfa (Sulfonamide Allergy Unknown HIVES/SOB Verified 07/20/24 14:57 Antibiotics) Home Medications ?Medication ?Instructions ?Recorded ?Confirmed ?Type baclofen 20 mg tablet 20 mg PO BID 05/14/21 07/20/24 History cholecalciferol (vitamin D3) 1,250 1,250 mcg PO WEEKLY 05/14/21 07/20/24 History mcg (50,000 unit) capsule diphenoxylate-atropine 2.5 1 tablet PO QID PRN diarrhea 05/14/21 07/20/24 History mg-0.025 mg tablet (Lomotil) ferrous sulfate 325 mg (65 mg 325 mg PO BID 05/14/21 07/20/24 History iron) tablet hydrochlorothiazide 25 mg tablet 25 mg PO DAILY 05/14/21 07/20/24 History hydrocodone 10 mg-acetaminophen 1 tablet PO Q4H PRN pain 05/14/21 07/20/24 History 325 mg tablet ondansetron HCl 4 mg tablet 4 mg PO Q6H PRN nausea and vomiting 05/14/21 07/20/24 History potassium chloride 20 mEq 20 meq PO BID 05/14/21 07/20/24 History tablet,extended release pregabalin 100 mg capsule (Lyrica) 150 mg PO BID 05/14/21 07/20/24 History sumatriptan succinate 50 mg tablet See Rx Instructions PO .COMPLEX 05/14/21 07/20/24 History topiramate 50 mg tablet 50 mg PO BID 05/14/21 07/20/24 History alprazolam 1 mg tablet 1 mg PO DAILY 06/01/24 07/20/24 History trazodone 100 mg tablet 100 mg PO HS PRN insomnia 07/20/24 07/20/24 History Patient hx anesthesia problems: none Family hx anesthesia problems: none Results Review: All pre-operative results and documents have been reviewed as part of the pre- operative evaluation. [facility] Past Medical History Medical History Screening mammogram, encounter for Multiple sclerosis History of low potassium Ankle swelling Endometriosis Surgical History Surgical History History of gynecological procedure surgery for endometriosis age 22 Family History Family History Mother Breast cancer Diabetes mellitus type 2 Grandparent Acute myocardial infarction maternal Hypertension maternal Diabetes mellitus CHF (congestive heart failure) maternal grandfather Father Hypertension Social History Social History Social History: former smoker Smoking packs per day: 0.25 Smoking cigarettes per day: 5.0 Years smoked: 20 Smoking pack-years: 5.00 Smoking status: Former smoker Tobacco type: cigarettes Second hand tobacco smoke exposure: No Smoking end date: 04/21/16 Alcohol intake: never Substance use: never Substance use type: does not use Do You Feel Safe in your Home?: Yes Lack of Transportation: No Lack of Food: Never True Current Housing: I Have Housing Concerned About Future Housing: No Difficulty Paying Gas/Electric Bills: No Difficulty Paying for Meds: No Currently Unemployed: No Education: Associate Degree Difficulty w/ Childcare or Family Care: No Living arrangements: with family Additional living arrangements comments: / with a intermediate partner of 20 years Occupation/Education: unemployed 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 Pt denies any being loose. ) Neurological: alert and oriented Last oral intake: >/= 8 hours ASA classification: III Emergent: no Anesthetic plan: proceed Anesthesia type and monitoring: general GIVS and standard monitoring Results Review: All pre-operative results and documents have been reviewed as part of the pre- operative evaluation. MS, ex smoker quit 2014. Informed Consent: The patient's anesthetic plan and its attendant risks and benefits were discussed with the patient/family/POA. Questions were solicited and answers provided to the satisfaction of the patient/family/POA.
[2024-07-29 09:45] VITALS: BP 109/56; PULSE 76; RESP 14; TEMP 36.8; O2SAT 100
[2024-07-29] MEDS: ACETAMINOPHEN 500 MG TABLET 1000 MG PO (09:45)
[2024-07-29] MEDS: LACTATED RINGERS 1,000 ML 30 ML IV CONT (09:45)
[2024-07-29 10:10] LABS: BEDSIDEPREGUCG Negative (Negative)
--- NOTE | 2024-07-29 10:15 | P.OP_ITS ---
Procedure Note - Detailed Date of Procedure 07/29/24 Pre-op Diagnosis 1. Menometrorrhagia 2. Dysmenorrhea 3. Endometriosis 4. Anemia Post-op Diagnosis Same (5. Fibroid ) Procedure Performed 1. Hysteroscopy with uterine curettings 2. Hysteroscopic myomectomy Surgeon Hammad Goodwin MD Anesthesia MAC Findings Slightly thickened endometrial cavity throughout. Questionable posterior wall fibroid. Description of Procedure Patient prepped draped usual manner for this procedure. Cervix was dilated to allow the hysteroscope to be placed which did reveal thickened cavity throughout and questionable posterior fibroid. Fibroid was removed with hysteroscopic cut ting instrument, curettings obtained of the cavity throughout and the specimen was all sent together. Patient was then sent to recovery room in stable condition. Estimated Blood Loss 10 Drains No Packing No Pathology Yes Complications No immediate complications Condition Stable Disposition PACU [facility] Billing Surgery - Charge Forward: Surgery Billing
[2024-07-29 10:20] VITALS: BP 103/58; PULSE 75; RESP 16; O2SAT 100
[2024-07-29] MEDS: oxyCODONE HCL (*CRX) 5 MG TAB IR PO (10:46)
[2024-07-29 10:50] VITALS: BP 118/83; PULSE 68
[2024-07-29 11:19] VITALS: BP 110/62; PULSE 63
== END 2024-07-29 11:55 | disposition home or self-care (01) ==
PROVIDERS: PCP Family Medicine; Visit Provider Obstetrics & Gynecology
PROC: 0U5B8ZZ Destruction of Endometrium, Via Natural or Artificial Opening Endoscopic (ICD-10-PCS; CPT 58563; principal; 2024-07-29 10:30)
DX: N92.1 Excessive and frequent menstruation with irregular cycle (principal); N94.6 Dysmenorrhea, unspecified; D64.9 Anemia, unspecified; G35 Multiple sclerosis; Z87.891 Personal history of nicotine dependence
CPT/HCPCS: 58558; 88305; A9270; J2250; J2704; J3010; J7120

== ENCOUNTER 2025-01-25 16:14 | Outpatient (CLI) | payer OTHER, SELFPAY ==
--- OUTSIDE RECORDS SUMMARY | 2025-01-25 16:42 | XMS_ITS | Clinical Summary ---
Author Organization [facility] Address [address] [place] [address] Care Team Providers Care Group Chief Operator Name Role Phone Edwardo Fajardo MD Primary Care Provider Source Comments [facility],non-owned Affiliates and Associated Physician Practices is amultiple site organization consisting of ambulatory clinics and hospital sitesin [place], [place], [place] and [place]. This disclosure is being madepursuant to the Care Everywhere program and may not contain all information available regarding this patient. Last updated 18.[facility] Allergies Active Allergy Reactions Criticality Noted Date Comments Latex Urticaria,Shortness of Breath High 2016 Morphine Urticaria,Shortness of Breath High 2016 Penicillins Urticaria,Shortness of Breath High 01/10 Sulfa Drugs Urticaria,Shortness of Breath High 01/10 Medications * Be aware that medications may not be up to date on this document. Alwaysverify current medications with the patient. baclofen (LIORESAL) 20 MG tablet 20 mg at bedtime 7 Active diphenoxylate-a tropine (LOMOTIL) 2.5-0.025 MG tablet 12/08/201 7 Active norethindrone-e thinyl estradiol (MICROGESTIN) 1-20 MG-MCG tablet 7 Active ondansetron (ZOFRAN) 4 MG tablet 7 Active traMADol (ULTRAM) 50 MG tablet Take 100 mg by mouth 4 times daily 8 Active BIOTIN PO Active Lactobacillus Acidophilus Active Multiple Vitamins-Minera ls (WOMENS MULTI PO) Active SUMAtriptan (IMITREX) 25 MG tablet 8 Active LYRICA 150 MG capsule Take 150 mg by mouth 2 times daily 8 Active acetaminophen (TYLENOL) 500 MG tablet Take 2 tablets by mouth every 6 hours Maximum allowable Acetaminophen amount = 4 Grams (4000 mg) / 24 hours. 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 Gender Identity Not on file Sexual Orientation Not on file Last Filed Vital Signs Vital Sign Reading Time Taken Comments Blood Pressure 156/86 11/18/2017 3:27 PM CDT Pulse 76 11/18/2017 3:27 PM CDT Temperature 36.6 C (97.9 F) 11/18/2017 3:27 PM CDT Respiratory Rate - - Oxygen Saturation 98% 05/23/2017 1:19 PM MOTOR VEHICLE LECTURER Inhaled Oxygen Concentration - - Weight 90.7 kg (200 lb) 11/18/2017 3:27 PM CDT Height 170.2 cm (5' 7) 11/18/2017 3:27 PM CDT Body Mass Index 31.32 11/18/2017 3:27 PM CDT Plan of Treatment Health Maintenance Due Date Last Done Comments COLOGUARD (AGES 45-75) - COL ON CA SCREENING 1977 COLON MONITORING 1977 COLONOSCOPY - COLON CA SCREENING 1977 CT COLONOGRAPHY - COLON CA SCREENING 1977 Colorectal Cancer Screening 1977 FIT - COLON CA SCREENING 1977 FLEX SIG - COLON CA SCREENING 1977 LIPID TESTING 1977 MAMMOGRAM 1977 HIV SCREENING 1992 HEPATITIS C SCREENING 09/12/1995 DTAP/TDAP/TD VACCINES (1 - Tdap) 1996 HEPATITIS B VACCINE (1 of 3 - 19+ 3-dose series) 1996 PAP SMEAR 1998 SCREENING FOR DIABETES 10/11/2020 10/11/2017 DEPRESSION SCREENING 04/21/2024 COVID-19 VACCINE (1 - 2023-2 5 season) 2024 INFLUENZA VACCINE (#1) 2024 ZOSTER VACCINE (1 of 2) 09/17/2027 [...] COMPREHENSIVE METABOLIC PANEL (10/11/2017 11:34 AM CDT) Glucose 77 65 - 139 mg/dL [facility] [...] 29 U/L [facility] Comment: Test Performed at: [facility] [address] [place] [address] ERICK MARK DO,MPH Blood BLOOD SPECIMEN / Unknown 10/11/2017 11:34 AM CDT 10/11/2017 11:35 AM CDT Laron Cardenas MD LAB - CHEMISTRY ORDERABLES Final Result Performing Organization Address City/State/[facility] Co de Phone Number [facility] [address] [place] [address] from Last 3 Months or Most Recently Relevant to Health Maintenance Insurance [facility] SELF PAY NO INSURANCE Member Subscriber Plan / Payer (Ef fective for All Dates) Name:Wojciech Brigitte Allie Member ID:Not on file Relation to Subscriber:Not on file Name:BRIGITTE JEFFREY Subscriber ID:Not on file (Home) Address: [address] [place], [place] [address] [address] Payer ID:Not on file Group ID:Not on file Type:Self Pay Address: [place], [place] [facility] Care Teams Group Chief Operator Relationship Specialty Start Date End Date Edwardo Fajardo MD [address] [place] [address] PCP - General Family Medicine 07/31/17
--- OUTSIDE RECORDS SUMMARY | 2025-01-25 16:42 | XMS_ITS | Clinical Summary ---
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 Gender Identity Not on file Sexual Orientation Not on file Obstetrics History Last Filed Vital Signs Vital Sign Reading Time Taken Comments Blood Pressure 132/84 04/02/2017 2:49 PM CATEGORY ANALYST Pulse 63 04/02/2017 2:49 PM CATEGORY ANALYST Temperature - - Respiratory Rate 16 01/10/2017 12:5 6 PM CDT Oxygen Saturation 95% 04/02/2017 2:49 PM CATEGORY ANALYST Inhaled Oxygen Concentration - - Weight 86.2 kg (189 lb 15.9 oz) 04/02/2017 2:49 PM CATEGORY ANALYST Height 170.2 cm (5' 7) 04/02/2017 2:49 PM CATEGORY ANALYST Body Mass Index 29.76 04/02/2017 2:49 PM CATEGORY ANALYST Plan of Treatment Not on file Insurance [facility] Care Teams Patrol Commander Relationship Specialty Start Date End Date Edwardo Fajardo MD PCP - General 04/02/17
[2025-01-25 16:55] LABS: Hematocrit 28.7 % (37.0-47.0); Hemoglobin 9.1 g/dL (12.0-15.0); Immature Granulocyte Percent A 0.2 % (0-0.5); Lymphocytes Absolute Auto 2.35 K/mm3 (0.9-3.2); Mean Corpuscular HGB Conc 31.7 g/dl (32-36); Mean Corpuscular Hemoglobin 27.7 pg (26-34); Mean Corpuscular Volume 87.2 fl (80-100); Nucleated Red Blood Cells Absolute Auto 0.000 K/mm3 (0.0-0.012); Nucleated Red Blood Cells Perc 0.0 % (0.0-0.2); Platelet Count Result 298 k/mm3 (150-375); Red Blood Count 3.29 M/mm3 (4.2-5.4); White Blood Count 5.3 K/mm3 (4.5-10.0)
[2025-01-25 17:05] LABS: Alanine Aminotransferase 10 U/L (6-35); Albumin Level 4.2 g/dL (3.5-5.1); Alkaline Phosphatase 48 U/L (38-126); Anion Gap 8 mmol/L (4-12); Aspartate Amino Transferase 21 U/L (14-36); Bilirubin,Total 0.2 mg/dL (0.2-1.3); Blood Urea Nitrogen 14 mg/dL (7-17); Calcium 8.7 mg/dL (8.4-10.2); Carbon Dioxide 24 mmol/L (22-30); Chloride 105 mmol/L (98-107); Cholesterol 143 mg/dL (0-200); Estimated Glomerular Filt Rate 44; Glucose 83 mg/dL (65-110); HDL Direct 49 mg/dL; Magnesium 2.4 mg/dL (1.6-2.3); Potassium 3.4 mmol/L (3.4-5.0); Sodium 137 mmol/L (137-145); Total Protein 7.7 g/dL (6.3-8.2); Triglycerides 72 mg/dL (<150)
[2025-01-25 17:56] LABS: Hemoglobin A1C 5.1 % (<5.7)
[2025-01-25 17:58] LABS: Thyroid Stimulating Hormone Reflex 0.019 uIU/mL (0.465-4.68)
[2025-01-25 18:15] LABS: Vitamin B12 376.0 pg/mL (239-931)
[2025-01-25 21:05] LABS: Free T4 Free Thyroxine Reflex 0.88 ng/dL (0.78-2.19)
[2025-01-25 21:57] LABS: Total Triiodothyronine (T3) 0.86 NG/ML (0.82-1.58)
== END 2025-01-25 16:15 | disposition home or self-care (01) ==
LOC: ANHLAB 16:17
PROVIDERS: PCP Family Medicine; Visit Provider Nurse Practitioner Family
DX: D64.9 Anemia, unspecified (principal); I13.0 Hypertensive heart and chronic kidney disease with heart failure and stage 1 through stage 4 chronic kidney disease, or unspecified chronic kidney disease; E78.5 Hyperlipidemia, unspecified; R73.01 Impaired fasting glucose; R53.83 Other fatigue; E55.9 Vitamin D deficiency, unspecified
CPT/HCPCS: 36415; 80053; 80061; 82306; 82607; 82746; 83036; 83735; 84439; 84443; 84480; 85025

== ENCOUNTER 2025-03-26 13:05 | Outpatient (CLI) | payer OTHER, SELFPAY ==
[2025-03-26 14:31] LABS: Free T4 Free Thyroxine 0.87 ng/dL (0.78-2.19)
[2025-03-26 14:47] LABS: Thyroid Stimulating Hormone < 0.015 uIU/mL (0.465-4.680)
== END 2025-03-26 13:06 | disposition home or self-care (01) ==
LOC: ANHLAB 13:06
PROVIDERS: PCP Family Medicine; Visit Provider Nurse Practitioner Family
DX: E05.90 Thyrotoxicosis, unspecified without thyrotoxic crisis or storm (principal)
CPT/HCPCS: 36415; 84439; 84443